=== PATIENT | female | born 1955 | race Caucasian/White ===

== ENCOUNTER → 2016-12-07 | Outpatient (CLI) | payer BC ==
[~2016-12-07] MED LIST: ACET-1311 PO; ACET-24 PO; ASPEC81 PO; CALC500C3 PO; CEPH500C PO; CHOL1000 PO; CLB200 PO; CLR10 PO; CYAN500T13 PO; DILT120C9 PO; DILT120T8 PO; DILT240C48 PO; DIPH25CA5 PO; DPRSCR15 TOP; KETOROLAC 0.4% OPB; LEVO150T9 PO; LEVO175T3 PO; LISI10TA PO; MELO15TA4 PO; ONDA4TAB10 SL; ONDA8TAB6 PO; OXYC1TAB3 PO; PEDICHW34 PO; RXC5 PO; SULF800T23 PO; [UNRECOGNIZED DRUG - CODE] OPB
--- NOTE | 2016-12-07 13:16 | MAMMOGRAPHY REPORT ---
BILATERAL DIGITAL SCREENING MAMMOGRAM WITH CAD: 12/07/2016 CLINICAL HISTORY: Routine screening. Patient has no complaints. TECHNIQUE: Bilateral CC and MLO views were obtained. Current study was also evaluated with a Comput er Aided Detection (CAD) system. COMPARISON: Comparison is made to exams dated: 12/04/2015 mammogram, 12/02/2014 mammogram, 11/14/2013 mammogram, 11/07/2012 mammogram, 11/02/2011 mammogram, and 10/30/2010 mammogram - [facility]. BREAST COMPOSITION: There are scattered areas of fibroglandular density in both breasts. FINDINGS: The parenchymal pattern is unchanged. No developing mass, architectural distortion or clu ster of suspicious microcalcifications is seen in either breast. IMPRESSION: ACR BI-RADS CATEGORY 2: BENIGN There is no mammographic evidence of malignancy. A 1 year screening mammogram is recommended. The p atient will receive written notification of the results. Approximately 10% of breast cancers are not detected with mammography. A negative mammographic repor t should not delay biopsy if a clinically suggestive mass is present. Renetta Yeung M.D. ay/:12/07/2016 07:38:36 Site Inspector: Ina FONG(R)(M), [facility] letter sent: Normal 1/2 BI-RADS Code: ACR BI-RADS Category 2: Benign
== END | disposition home or self-care (01) ==
LOC: C.MAMM 07:19
PROVIDERS: ATTEND Internal Medicine
DX: Z12.31 Encounter for screening mammogram for malignant neoplasm of breast (principal)

== ENCOUNTER 2017-02-03 12:14 | Emergency (ER) | payer BC, OTHER ==
[~2017-02-03] VITALS: Ht 162.6 cm; Wt 106.5 kg
[~2017-02-03 12:14] MED LIST changes: -ACET-1311 PO; -ACET-24 PO; -ASPEC81 PO; -CALC500C3 PO; -CEPH500C PO; -CHOL1000 PO; -CLB200 PO; -CYAN500T13 PO; -DILT120C9 PO; -DILT120T8 PO; -DIPH25CA5 PO; -DPRSCR15 TOP; -KETOROLAC 0.4% OPB; -LEVO150T9 PO; -LEVO175T3 PO; -ONDA4TAB10 SL; -ONDA8TAB6 PO; -OXYC1TAB3 PO; -RXC5 PO; -SULF800T23 PO
[2017-02-03 12:24] VITALS: TEMP 37.2; Ht 162.6 cm; Wt 106.5 kg
[2017-02-03] MEDS ORDERED: ONDANSETRON INJ 2 MG/ML 2 ML VIAL IV STA (12:52)
[2017-02-03] MEDS ORDERED: SODIUM CHLORIDE 0.9% 1000ML 1,000 ML IV STA (12:52)
[2017-02-03] MEDS ORDERED: MoRPHine SULFATE 4 MG/ML 1 ML CARP IV STA (12:52)
--- NOTE | 2017-02-03 13:46 | DIAGNOSTIC IMAGING REPORT ---
LEFT ELBOW MIN 3 VIEWS ROUTINE CLINICAL HISTORY: Left elbow pain. Evaluate for joint effusion. COMPARISON: None FINDINGS: Alignment of the left elbow is anatomic. There is no evidence for joint effusion. No fracture or suspicious lesion is present. There may be minimal chondrocalcinosis. Soft tissue swelling overlying the olecranon and proximal left forearm is noted. IMPRESSION: 1. No fracture or evidence of left elbow joint effusion. 2. Posterior left elbow soft tissue swelling. Electronically signed by: Wilman De Souza M.D. 02/03/2017 1:44 PM Dictated Date/Time: 02/03/2017 1:43 PM
[2017-02-03 13:49] LABS: BASO % 0.2 %; BASO ABS # 0.04 K/uL (0-0.2); COMPLETE YES; EOS % 0.5 %; IG% 0.3 %; LYMPH % 6.6 %; LYMPH ABS # 1.11 K/uL (1.2-3.4); MEAN CELL VOLUME 90.4 fL (80-100); MEAN CORPUSCULAR HEMOGLOBIN 29.5 pg (25-34); MEAN CORPUSCULAR HGB CONC 32.7 g/dl (32-36); MONO % 12.1 %; NEUT % 80.3 %; PLATELET COUNT 328 K/uL (130-400); RED BLOOD COUNT 4.98 M/uL (4.2-5.4); WHITE BLOOD COUNT 16.83 K/uL (4.8-10.8)
[2017-02-03] MEDS ORDERED: DPRSCR15 TOP (14:01)
[2017-02-03] MEDS ORDERED: CALC500C3 PO (14:01)
[2017-02-03] MEDS ORDERED: BND25 PO (14:01)
[2017-02-03] MEDS ORDERED: LEVO175T3 PO (14:01)
[2017-02-03 14:03] LABS: PROTHROMBIN TIME (PATIENT) 10.2 SECONDS (9.0-12.0)
[2017-02-03 14:07] LABS: BUN/CREATININE RATIO 16.7 (10-20); CALCIUM 8.1 mg/dl (8.5-10.1); CREATININE 0.9 mg/dl (0.60-1.20)
[2017-02-03 14:09] LABS: ALB/GLOB RATIO 0.8 (0.9-2)
[2017-02-03] MEDS ORDERED: ACETAMINOPHEN 325 MG TAB PO STA (14:41)
[2017-02-03] MEDS ORDERED: SULFAMETHOXAZOLE/TRIMETHOPRIM DS 800/160MG TAB PO STA (14:41)
[2017-02-03] MEDS ORDERED: CEFAZOLIN SOD 1000MG/55 ML D5W IV STA (14:41)
[2017-02-03] MEDS ORDERED: CEPH500C PO (15:10)
[2017-02-03] MEDS ORDERED: OXYC1TAB3 PO (15:10)
[2017-02-03] MEDS ORDERED: SULF800T23 PO (15:10)
[2017-02-03 15:54] VITALS: BP 139/75; PULSE 106; O2SAT 93
--- NOTE | 2017-02-03 16:20 | EMERGENCY ROOM VISIT NOTE ---
History Report prepared by Nancy: Ena Ybarra Under the Supervision of: Dr. Stuart Paris M.D. First contact with patient: 12:43 Chief Complaint: ELBOW PAIN/INJURY Stated Complaint: HOT PAINFUL ELBOW,NAUSEA, SHOOTING PAIN History of Present Illness The patient is a 61 year old female who presents to the Emergency Room with complaints of left elbow pain beginning last night. The patient reports that she thought it was a bug bite so she took Benadryl, but it did not relieve her symptoms. She reports that her elbow did not itch but that it was red. Touching and straightening her elbow exacerbates the pain. She states that she has had nausea but denies having fevers or vomiting. The patient reports that she has dermatitis and hypertension. 2 weeks ago she had a heat rash and was placed on prednisone .The patient reports that she uses a computer at work but has been doing this for 30 years. She denies any injury. States pain is worse when she touches the elbow but not when she moves it except when it is in full extension. Source of History: patient Onset: last night Position: elbow (left) Quality: other (did not itch, but was red) Modifying Factors (Worsening): other (touching and fully straightening her elbow ) Associated Symptoms: + nausea, No fevers, No vomiting Review of Systems See HPI for pertinent positives & negatives. A total of 10 systems reviewed and were otherwise negative. Past Medical & Surgical Medical Problems: (1) Papillary thyroid carcinoma Surgical Problems: (1) Post-operative state Family History Diabetes mellitus Heart disease Hypertension Kidney stones Social History Smoking Status: Never Smoker Alcohol Use: none Drug Use: none Marital Status: Housing Status: lives with significant other Occupation Status: retired Current/Historical Medications Scheduled Betamethasone Dip (Betamethasone Dipropionat), 1 APPLN TOP BID Calcium Carbonate (Tums), 1 TAB PO TID Cephalexin Monohydrate (Keflex), 500 MG PO TID Diltiazem Hcl Coated Beads (Cartia Xt), 1 CAP PO QAM Levothyroxine Sodium (Levothyroxine Sodium), 1 TAB PO DAILY Lisinopril (Prinivil), 10 MG PO QAM Loratadine (Claritin), 10 MG PO QAM Meloxicam (Meloxicam), 15 MG PO DAILY Pediatric Multiple Vitamin W/ (Gummi Bear Multivitamin/M), 1 TAB PO QAM Sulfa/Trimethoprim (Bactrim Ds 800MG/160MG), 1 TAB PO BID Scheduled PRN Diphenhydramine Hcl (Benadryl), 25 MG PO Q4H PRN for ALLERGIC REACTION Oxycodone Ir (Roxicodone Ir), 5 MG PO Q4H PRN for Pain Allergies Coded Allergies: Clavulanic Acid (Verified Adverse Reaction, Mild, DYSURIA, 02/03/17) FROM AUGMENTIN Physical Exam Vital Signs Date Time Temp Pulse Resp B/P (MAP) Pulse Ox O2 Delivery O2 Flow Rate FiO2 02/03/17 15:54 106 18 139/75 93 02/03/17 15:06 105 18 142/72 97 Room Air 02/03/17 12:24 37.2 125 17 132/82 98 Room Air Physical Exam Constitutional: Vital signs reviewed. Eyes: Pupils are equal round reactive to light. Conjunctiva are noninjected. ENT: Pharynx is clear without erythema or exudate. Mucous membranes are moist. Neck supple without meningeal signs. Respiratory: Clear to auscultation bilaterally. Breath sounds are equal bilaterally. Cardiovascular: Tachycardic. Regular rhythm. No rubs or gallops. GI: Soft, nondistended and nontender. Bowel sounds are present. Musculoskeletal: Diffuse posterior left elbow erythema with increased warmth. Full ROM without significant pain. Integumentary: No cyanosis. Rash under right breast. Neurological: The patient is awake and alert. No focal deficits. Psychiatric: Normal affect. Medical Decision & Procedures ER Provider Diagnostic Interpretation: X-ray results as stated below per interpretation by me and the radiologist: LEFT ELBOW MIN 3 VIEWS ROUTINE CLINICAL HISTORY: Left elbow pain. Evaluate for joint effusion. COMPARISON: None FINDINGS: Alignment of the left elbow is anatomic. There is no evidence for joint effusion. No fracture or suspicious lesion is present. There may be minimal chondrocalcinosis. Soft tissue swelling overlying the olecranon and proximal left forearm is noted. IMPRESSION: 1. No fracture or evidence of left elbow joint effusion. 2. Posterior left elbow soft tissue swelling. Electronically signed by: Wilman De Souza M.D. 02/03/2017 1:44 PM Dictated Date/Time: 02/03/2017 1:43 PM Laboratory Results 02/03/17 13:20 Red Blood Count 4.98, Mean Corpuscular Volume 90.4, Mean Corpuscular Hemoglobin 29.5, Mean Corpuscular Hemoglobin Concent 32.7, Mean Platelet Volume 10.0, Neutrophils (%) (Auto) 80.3, Lymphocytes (%) (Auto) 6.6, Monocytes (%) (Auto) 12.1, Eosinophils (%) (Auto) 0.5, Basophils (%) (Auto) 0.2, Neutrophils # (Auto ) 13.51, Lymphocytes # (Auto) 1.11, Monocytes # (Auto) 2.03, Eosinophils # (Auto ) 0.09, Basophils # (Auto) 0.04 02/03/17 13:20 Test 02/03/17 13:20 02/03/17 13:33 White Blood Count 16.83 K/uL (4.8-10.8) Red Blood Count 4.98 M/uL (4.2-5.4) Hemoglobin 14.7 g/dL (12.0-16.0) Hematocrit 45.0 % (37-47) Mean Corpuscular Volume 90.4 fL (80-100) Mean Corpuscular Hemoglobin 29.5 pg (25-34) Mean Corpuscular Hemoglobin Concent 32.7 g/dl (32-36) Platelet Count 328 K/uL (130-400) Mean Platelet Volume 10.0 fL (7.4-10.4) Neutrophils (%) (Auto) 80.3 % Lymphocytes (%) (Auto) 6.6 % Monocytes (%) (Auto) 12.1 % Eosinophils (%) (Auto) 0.5 % Basophils (%) (Auto) 0.2 % Neutrophils # (Auto) 13.51 K/uL (1.4-6.5) Lymphocytes # (Auto) 1.11 K/uL (1.2-3.4) Monocytes # (Auto) 2.03 K/uL (0.11-0.59) Eosinophils # (Auto) 0.09 K/uL (0-0.5) Basophils # (Auto) 0.04 K/uL (0-0.2) RDW Standard Deviation 50.3 fL (36.4-46.3) RDW Coefficient of Variation 15.2 % (11.5-14.5) Immature Granulocyte % (Auto) 0.3 % Immature Granulocyte # (Auto) 0.05 K/uL (0.00-0.02) Prothrombin Time 10.2 SECONDS (9.0-12.0) Prothromb Time International Ratio 1.0 (0.9-1.1) Activated Partial Thromboplast Time 25.7 SECONDS (21.0-31.0) Partial Thromboplastin Ratio 1.0 Anion Gap 9.0 mmol/L (3-11) Est Creatinine Clear Calc Drug Dose 76.2 ml/min Estimated GFR () 78.9 Estimated GFR (Non- 68.0 BUN/Creatinine Ratio 16.7 (10-20) Calcium Level 8.1 mg/dl (8.5-10.1) Total Bilirubin 0.8 mg/dl (0.2-1) Aspartate Amino Transf (AST/SGOT) 18 U/L (15-37) Alanine Aminotransferase (ALT/SGPT) 36 U/L (12-78) Alkaline Phosphatase 69 U/L (45-117) Total Protein 7.7 gm/dl (6.4-8.2) Albumin 3.5 gm/dl (3.4-5.0) Globulin 4.2 gm/dl (2.5-4.0) Albumin/Globulin Ratio 0.8 (0.9-2) Bedside Lactic Acid Venous 1.08 mmol/L (0.90-1.70) Laboratory results as reviewed by me. Medications Administered Medications (Trade) Dose Ordered Sig/Ed Route Start Time Stop Time Status Last Admin Dose Admin Sodium Chloride 1,000 ml @ 999 mls/hr Q1H1M STAT IV 02/03/17 12:52 02/03/17 13:52 DC 02/03/17 13:56 999 MLS/HR Morphine Sulfate (MoRPHine SULFATE INJ) 4 mg NOW STAT IV 02/03/17 12:52 02/03/17 12:55 DC 02/03/17 13:55 4 MG Ondansetron HCl (Zofran Inj) 4 mg NOW STAT IV 02/03/17 12:52 02/03/17 12:55 DC 02/03/17 13:56 4 MG Cefazolin Sodium (Ancef 1000mg/55 ml D5W) 1,000 mg NOW STAT IV 02/03/17 14:41 02/03/17 14:43 DC 02/03/17 15:03 1,000 MG Trimethoprim/ Sulfamethoxazole (Septra Ds 800/ 160MG Tab) 1 tab NOW STAT PO 02/03/17 14:41 02/03/17 14:43 DC 02/03/17 15:02 1 TAB Acetaminophen (Tylenol Tab) 650 mg NOW STAT PO 02/03/17 14:41 02/03/17 14:43 DC 02/03/17 15:03 650 MG ED Course 1247: The patient was evaluated in room B8. A complete history and physical exam was performed. 1252: Ordered Zofran Inj 4 mg UV, Morphine Sulfate 4 mg IV, Sodium Chloride 1, 000 ml @ 999 mls/hr IV. 1440: She states that she is feeling better and her heart rate is 106. I discussed her test results with her. 1441: Ordered Tylenol Tab 650 mg PO, Trimethoprim/Sulfamethoxazole 1 tab PO, Cefazolin Sodium 1,000 mg IV. 1450: Upon reevaluation, the patient appeared to have improvement of her symptoms. I discussed dawsonight's findings with her. She verbalized agreement of the treatment plan. She was discharged home. Medical Decision This is a 61-year-old female presents with left elbow pain. Differential diagnosis includes cellulitis, septic arthritis, MRSA, bursitis, septic bursitis. I did perform a limited focused review of portions of the patient's old chart on the electronic medical record. The patient has had no recent pertinent visits to this hospital. Blood Pressure Screening: Patient was found to have an elevated blood pressure and was referred to their primary doctor for recheck and further treatment. Medication Reconciliation: I attest that I have personally reviewed the patient' s current medication list. I did evaluate the patient as noted above. The patient is presenting with a cellulitis to her left elbow. She does not have any signs of septic arthritis on examination. She is tachycardic but she is in pain. IV access was established. I did treat her with IV morphine and Zofran. She was also given normal saline IV. She is also treated with Tylenol. I did order and personally review the patient's x-rays as described above. There is no evidence of effusion. I did order and review the patient's blood work as noted in the electronic medical record. She does have an elevated white blood cell count. I did reassess the patient. She is feeling better. Her heart rate has come down. I did discuss the test results with the patient. I did treat her with Ancef IV. She is also given Bactrim to cover MRSA. She was advised follow up with her doctor within 24 hours for recheck. She was given a prescription for oxycodone, Keflex and Bactrim. She was given return instructions as outlined below. [place] Drug Monitoring Program Search Results: patient reviewed within database, no issues identified Impression Primary Impression: Cellulitis of left elbow Scribe Attestation The scribe's documentation has been prepared under my direct and personally reviewed by me in its entirety. I confirm that the note above accurately reflects all work, treatment, procedures, and medical decision making performed by me. Departure Information Dispostion Home / Self-Care Prescriptions Oxycodone Ir (Roxicodone Ir) 5 Mg Tab 5 MG PO Q4H Y for Pain, #20 TAB Prov: Stuart Paris M.D. 02/03/17 Cephalexin Monohydrate (Keflex) 500 Mg Cap 500 MG PO TID for 10 Days, #30 CAP Prov: Stuart Paris M.D. 02/03/17 Sulfa/Trimethoprim (Bactrim Ds 800MG/160MG) Tab 1 TAB PO BID, #19 TAB Prov: Stuart Paris M.D. 02/03/17 Referrals Latasha ROBLES M.D. (PCP) Forms HOME CARE DOCUMENTATION FORM, IMPORTANT VISIT INFORMATION Patient Instructions Cellulitis [place], My [facility] Additional Instructions You have been examined and treated today on an emergency basis only. This is not a substitute for, or an effort to provide, complete comprehensive medical care. It is impossible to recognize and treat all injuries or illnesses in a single emergency department visit. It is therefore important that you follow up closely with your physician in 24 hours. Call as soon as possible for an appointment. Return immediately for worsening symptoms or if you develop fever , vomiting, significant pain with movement of your elbow or any other concerning symptoms.
[2017-02-04] MEDS ORDERED: ACET-1311 PO (19:09)
== END 2017-02-03 15:55 | disposition home or self-care (01) ==
LOC: C.EDB 12:16
DX: L03.114 Cellulitis of left upper limb (principal); C73 Malignant neoplasm of thyroid gland; Z79.899 Other long term (current) drug therapy; Z88.8 Allergy status to other drugs, medicaments and biological substances; Z83.3 Family history of diabetes mellitus; Z82.49 Family history of ischemic heart disease and other diseases of the circulatory system; Z84.1 Family history of disorders of kidney and ureter

== ENCOUNTER 2017-02-04 18:11 | Emergency (ER) | payer BC, OTHER ==
[~2017-02-04] VITALS: Ht 162.6 cm; Wt 104.5 kg
[~2017-02-04 18:11] MED LIST changes: +BND25 PO; +CALC500C3 PO; +CEPH500C PO; +DPRSCR15 TOP; +LEVO175T3 PO; +OXYC1TAB3 PO; +SULF800T23 PO; -[UNRECOGNIZED DRUG - CODE] OPB
[2017-02-04 18:14] VITALS: Ht 162.6 cm; Wt 104.5 kg
[2017-02-04] MEDS ORDERED: ACET-1311 PO (19:09)
[2017-02-04] MEDS ORDERED: CEFTRIAXONE SOD INJ 1 GM ADDVIAL IV STA (19:15)
[2017-02-04] MEDS ORDERED: VANCOMYCIN INJ 1,000 MG in SODIUM CHLORIDE 0.9% 250ML 250 ML IV STA (19:15)
[2017-02-04] MEDS ORDERED: KETOROLAC TROMETHAMINE 30 MG/ML VIAL IV STA ×2 (19:15)
[2017-02-04] MEDS ORDERED: SODIUM CHLORIDE 0.9% 1000ML 1,000 ML IV STA (19:15)
--- NOTE | 2017-02-04 19:18 | EMERGENCY ROOM VISIT NOTE ---
History Report prepared by Nancy: Tanisha Patino Under the Supervision of: Dr. Manolo Chance M.D. First contact with patient: 19:09 Chief Complaint: WOUND INFECTION Stated Complaint: CELLULITIS,FEVER,LARGER RED AREA Nursing Triage Summary: patient seen yesterday for cellulitis of left elbow, patient states "its worse today, I've got fever, chills, the pain is worse." History of Present Illness The patient is a 61 year old female who presents to the Emergency Room with complaints of a constant wound infection beginning yesterday. The patient states that she was seen here yesterday and was diagnosed with cellulitis. She reports that she was feeling okay after going home and about 2 hours ago she developed a fever and chills. She notes a history of hypertension and thyroid issues. The patient states that she did not have it drained yesterday and notes that her pain is worsened by straightening the arm. Source of History: patient Onset: yesterday Position: elbow (left) Timing: constant Modifying Factors (Worsening): other (straightening arm) Associated Symptoms: + fevers, + chills Review of Systems See HPI for pertinent positives & negatives. A total of 10 systems reviewed and were otherwise negative. Past Medical & Surgical Medical Problems: (1) Papillary thyroid carcinoma Surgical Problems: (1) Post-operative state Family History Diabetes mellitus Heart disease Hypertension Kidney stones Social History Smoking Status: Never Smoker Alcohol Use: none Drug Use: none Marital Status: Housing Status: lives with significant other Occupation Status: retired Current/Historical Medications Scheduled Calcium Carbonate (Tums), 1 TAB PO DAILY Cephalexin Monohydrate (Keflex), 500 MG PO TID Diltiazem Hcl (Cardizem), 120 MG PO DAILY Levothyroxine Sodium (Levothyroxine Sodium), 175 MCG PO QAM Lisinopril (Prinivil), 10 MG PO QAM Loratadine (Claritin), 10 MG PO QAM Meloxicam (Meloxicam), 15 MG PO DAILY Pediatric Multiple Vitamin W/ (Gummi Bear Multivitamin/M), 1 TAB PO QAM Sulfa/Trimethoprim (Bactrim Ds 800MG/160MG), 1 TAB PO BID Scheduled PRN Acetaminophen (Tylenol), 650 MG PO Q6 PRN for Pain or Fever Betamethasone Dip (Betamethasone Dipropionat), 1 APPLN TOP BID PRN for Diphenhydramine Hcl (Benadryl), 25 MG PO Q4H PRN for ALLERGIC REACTION Oxycodone Ir (Roxicodone Ir), 5 MG PO Q4H PRN for Pain Allergies Coded Allergies: Clavulanic Acid (Verified Adverse Reaction, Mild, DYSURIA, 02/04/17) FROM AUGMENTIN Physical Exam Vital Signs Date Time Temp Pulse Resp B/P (MAP) Pulse Ox O2 Delivery O2 Flow Rate FiO2 02/04/17 22:54 37.1 80 16 126/78 97 Room Air 02/04/17 21:00 84 16 134/82 97 02/04/17 18:14 37.1 124 20 166/80 94 Room Air Physical Exam GENERAL: Patient is a healthy-appearing well-nourished [] HEAD: Normocephalic atraumatic EYES: Ocular movements intact pupils equal and react to light OROPHARYNX mucous membranes are moist no exudates present no erythema or edema present NECK: Supple no nuchal rigidity CHEST: Good equal expansion LUNGS: Clear and equal to auscultation CARDIAC: Normal S1 and S2 ABDOMEN: Soft nontender no guarding BACK: No CVA tenderness EXTREMITIES: No pain upon palpation normal muscle strength in all groups no clubbing cyanosis,red area of cellulitis extending out of the purple zone running down the arm, she has good range of movement of the left elbow and no pain NEURO: Patient is following commands and answering questions appropriately. Alert and oriented x3 Cranial Nerves 2-12 grossly intact Medical Decision & Procedures ER Provider Diagnostic Interpretation: Radiology results as stated below per my review and radiologist interpretation: VENOUS DOPPLER UPR EXT UNI FINDINGS: The internal jugular vein is patent. There is normal flow within the subclavian vein. There is normal flow and compressibility within the left axillary, basilic, brachial, radial, ulnar, and visualized cephalic veins. IMPRESSION: No DVT within the upper extremity. The above report was generated using voice recognition software. It may contain grammatical, syntax or spelling errors. Electronically signed by: Sheldon Atkins M.D. 02/04/2017 9:00 PM Dictated Date/Time: 02/04/2017 8:59 PM Laboratory Results 02/04/17 19:30 Red Blood Count 4.52, Mean Corpuscular Volume 90.0, Mean Corpuscular Hemoglobin 29.2, Mean Corpuscular Hemoglobin Concent 32.4, Mean Platelet Volume 9.9, Neutrophils (%) (Auto) 75.9, Lymphocytes (%) (Auto) 10.3, Monocytes (%) (Auto) 12.2, Eosinophils (%) (Auto) 1.1, Basophils (%) (Auto) 0.2, Neutrophils # (Auto ) 10.81, Lymphocytes # (Auto) 1.47, Monocytes # (Auto) 1.74, Eosinophils # (Auto ) 0.15, Basophils # (Auto) 0.03 02/04/17 19:30 Test 02/04/17 19:30 White Blood Count 14.24 K/uL (4.8-10.8) Red Blood Count 4.52 M/uL (4.2-5.4) Hemoglobin 13.2 g/dL (12.0-16.0) Hematocrit 40.7 % (37-47) Mean Corpuscular Volume 90.0 fL (80-100) Mean Corpuscular Hemoglobin 29.2 pg (25-34) Mean Corpuscular Hemoglobin Concent 32.4 g/dl (32-36) Platelet Count 300 K/uL (130-400) Mean Platelet Volume 9.9 fL (7.4-10.4) Neutrophils (%) (Auto) 75.9 % Lymphocytes (%) (Auto) 10.3 % Monocytes (%) (Auto) 12.2 % Eosinophils (%) (Auto) 1.1 % Basophils (%) (Auto) 0.2 % Neutrophils # (Auto) 10.81 K/uL (1.4-6.5) Lymphocytes # (Auto) 1.47 K/uL (1.2-3.4) Monocytes # (Auto) 1.74 K/uL (0.11-0.59) Eosinophils # (Auto) 0.15 K/uL (0-0.5) Basophils # (Auto) 0.03 K/uL (0-0.2) RDW Standard Deviation 50.7 fL (36.4-46.3) RDW Coefficient of Variation 15.5 % (11.5-14.5) Immature Granulocyte % (Auto) 0.3 % Immature Granulocyte # (Auto) 0.04 K/uL (0.00-0.02) Anion Gap 6.0 mmol/L (3-11) Est Creatinine Clear Calc Drug Dose 69.2 ml/min Estimated GFR () 71.2 Estimated GFR (Non- 61.4 BUN/Creatinine Ratio 16.5 (10-20) Calcium Level 8.3 mg/dl (8.5-10.1) Labs reviewed by ED physician. Medications Administered Medications (Trade) Dose Ordered Sig/Ed Route Start Time Stop Time Status Last Admin Dose Admin Ceftriaxone Sodium (Rocephin Inj) 1 gm NOW STAT IV 02/04/17 19:15 02/04/17 19:18 DC 02/04/17 19:46 1 GM Vancomycin HCl 1000 mg/Sodium Chloride 270 ml @ 125 mls/hr NOW STAT IV 02/04/17 19:15 02/04/17 21:24 DC 02/04/17 21:01 125 MLS/HR Sodium Chloride 1,000 ml @ 999 mls/hr Q1H1M STAT IV 02/04/17 19:15 02/04/17 20:15 DC 02/04/17 19:46 999 MLS/HR Ketorolac Tromethamine (Toradol Inj) 30 mg NOW STAT IV 02/04/17 19:15 02/04/17 19:18 DC 02/04/17 19:46 30 MG ED Course 1908: Past medical records reviewed. The patient was evaluated in room C1. A complete history and physical examination was performed. 1914: Toradol Inj 30mg IV, Sodium Chloride 1000 ml @ 999 mls/hr IV, Toradol Inj 30mg IV, Vancomycin HCl 100mg/Sodium Chloride 270ml @ 125mls/hr IV, Rocephin Inj 1gm IV. 2019: Vancomycin HCl 1gm IV. 2224: Upon reexamination the patient is doing well. I discussed results and treatment plan with the patient. She verbalizes agreement and understanding. The patient is ready for discharge. Medical Decision Differential diagnosis: Etiologies such as cellulitis, abscess, MRSA infection, DVT, necrotizing fasciitis, dermatitis, drug eruption, as well as others were entertained. Medication Reconciliation: I attest that I have personally reviewed the patient' s current medication list Blood Pressure Screening: Patient was found to have an elevated blood pressure and was referred to their primary care doctor for recheck and further treatment This is a 61-year-old female who presents emergency department complaining of left upper extremity swelling. The swelling I will note appears much worse than the demarcated the area from yesterday for this reason IV was established and another CBC was drawn. The patient's white blood count has fallen to 14. She was started on IV Rocephin and IV vancomycin however her streaking appeared to improve dramatically while she was in the emergency Department. At this point the patient felt well enough to be discharged home. She has no evidence of a blood clot on ultrasound. I stressed the need to continue taking her antibiotics at home. The IV was left in place for the patient to return to the emergency department tomorrow. Patient and were in agreement with the treatment plan. Impression Primary Impression: Cellulitis Scribe Attestation The scribe's documentation has been prepared under my direction and personally reviewed by me in its entirety. I confirm that the note above accurately reflects all work, treatment, procedures, and medical decision making performed by me. Departure Information Dispostion Home / Self-Care Referrals Latasha SOLIS M.D. (PCP) Forms HOME CARE DOCUMENTATION FORM, IMPORTANT VISIT INFORMATION, WORK / SCHOOL INSTRUCTIONS Patient Instructions Cellulitis - [facility], My [facility] Additional Instructions Return in 24 hours for repeat exam You have been examined and treated today on an emergency basis only. This is not a substitute for, or an effort to provide, complete comprehensive medical care. It is impossible to recognize and treat all injuries or illnesses in a single emergency department visit. It is therefore important that you follow up closely with Dr Solis. Call as soon as possible for an appointment. Thank you for your time and consideration. I look forward to speaking with you again soon. Please don't hesitate to call us if you have any questions. Problem Qualifiers Primary Impression: Cellulitis Site of cellulitis: extremity Site of cellulitis of extremity: upper extremity Laterality: left Qualified Codes: L03.114 - Cellulitis of left upper limb
[2017-02-04] MEDS ORDERED: VANCOMYCIN 1GM/270ML NSS ONE (20:20)
[2017-02-04 20:34] LABS: BASO % 0.2 %; BASO ABS # 0.03 K/uL (0-0.2); COMPLETE YES; EOS % 1.1 %; HEMATOCRIT 40.7 % (37-47); IG% 0.3 %; LYMPH % 10.3 %; LYMPH ABS # 1.47 K/uL (1.2-3.4); MEAN CORPUSCULAR HEMOGLOBIN 29.2 pg (25-34); MEAN CORPUSCULAR HGB CONC 32.4 g/dl (32-36); MEAN PLATELET VOLUME 9.9 fL (7.4-10.4); MONO % 12.2 %; NEUT % 75.9 %; PLATELET COUNT 300 K/uL (130-400); RED BLOOD COUNT 4.52 M/uL (4.2-5.4); WHITE BLOOD COUNT 14.24 K/uL (4.8-10.8)
[2017-02-04 20:43] LABS: BUN/CREATININE RATIO 16.5 (10-20); CALCIUM 8.3 mg/dl (8.5-10.1); CREATININE 0.98 mg/dl (0.60-1.20); POTASSIUM 3.6 mmol/L (3.5-5.1)
--- NOTE | 2017-02-04 21:01 | DIAGNOSTIC IMAGING REPORT ---
VENOUS DOPPLER UPR EXT UNI HISTORY: Pain. Edema. Pt c/o LUE swelling COMPARISON STUDY: None. FINDINGS: The internal jugular vein is patent. There is normal flow within the subclavian vein. There is normal flow and compressibility within the left axillary, basilic, brachial, radial, ulnar, and visualized cephalic veins. IMPRESSION: No DVT within the upper extremity. The above report was generated using voice recognition software. It may contain grammatical, syntax or spelling errors. Electronically signed by: Sheldon Atkins M.D. 02/04/2017 9:00 PM Dictated Date/Time: 02/04/2017 8:59 PM
[2017-02-04 22:54] VITALS: BP 126/78; PULSE 80; TEMP 37.1; O2SAT 97
[2017-02-05] MEDS ORDERED: DILT120T8 PO (17:14)
== END 2017-02-04 22:57 | disposition home or self-care (01) ==
LOC: C.EDB 18:11 → C.EDC 22:57
DX: L03.114 Cellulitis of left upper limb (principal); I10 Essential (primary) hypertension; C73 Malignant neoplasm of thyroid gland; Z83.3 Family history of diabetes mellitus; Z82.49 Family history of ischemic heart disease and other diseases of the circulatory system; Z84.1 Family history of disorders of kidney and ureter

== ENCOUNTER 2017-02-05 16:45 | Emergency (ER) | payer BC ==
[~2017-02-05] VITALS: Ht 162.6 cm; Wt 103.9 kg
[~2017-02-05 16:45] MED LIST changes: +ACET-1311 PO
[2017-02-05 16:48] VITALS: BP 117/68; PULSE 98; TEMP 36.8; O2SAT 96; Ht 162.6 cm; Wt 103.9 kg
[2017-02-05] MEDS ORDERED: DILT120T8 PO (17:14)
--- NOTE | 2017-02-05 17:21 | EMERGENCY ROOM VISIT NOTE ---
ED Visit Note First contact with patient: 17:06 CHIEF COMPLAINT: Infection of the elbow HISTORY OF PRESENT ILLNESS: This C1-year-old female patient presents to the emergency department with her complaining of in light of the left elbow. The area his red, warm, and very painful, however she states the pain, redness, swelling is significantly improved since yesterday. The patient was seen here yesterday and for evaluation of the cellulitis. She was treated yesterday with IV antibiotics, and was discharged and advised to keep the IV in place in case she would need antibiotics today. The patient reports significant improvement. The patient denies fever, chills, nausea, or loss of appetite. Movement of the left elbow is moderately decreased because of the pain. REVIEW OF SYSTEMS: A 10-system review of systems was performed with positives and pertinent negatives listed in the history of present illness. All other systems were reviewed and are negative. ALLERGIES: Clavulanic acid MEDICATIONS: Bactrim, Keflex, OxyIR, lisinopril, diltiazem, loratadine, multivitamin, meloxicam, Tums, Benadryl, betamethasone, levothyroxine, Tylenol PMH: Cellulitis, hypertension, seasonal allergies SOCIAL HISTORY: Lives locally with her . She denies drug, alcohol, tobacco use. PHYSICAL EXAM: Vital Signs: Reviewed Nurse's notes, Temperature 36.8C, vital signs stable. GENERAL: 61-year-old female, in no acute distress, is non toxic in appearance, well-developed, well-nourished. SKIN: The left elbow and surrounding area is red, warm, very tender, and swollen. There is no lymphangitic streaking. There is no discharge. There is no fluctuance. There is no induration. There is an outline drawn surrounding the infection, and redness as well within the borders. HEART: Regular rate and rhythm without murmur, gallop, or rub. LUNGS: Clear to auscultation bilaterally without wheezes , rales, or rhonchi. NEURO: Alert and oriented to person, place, and time. Normal sensation to light and sharp touch. Capillary reflex less than 2 seconds. Peripheral pulses 2 + bilaterally. EMERGENCY DEPARTMENT COURSE: I examined the patient. The patient was also examined by Dr. Chance. He states the infection looks significantly better than yesterday. He recommends DC the IV and have the patient follow up outpatient. She is to continue taking Bactrim and Keflex as she was previously prescribed. The patient was discharged home in good condition. DIFFERENTIAL DIAGNOSIS: MRSA, Sepsis, joint infection, cellulitis, and others. DIAGNOSIS: Cellulitis of the left elbow DISCHARGE INSTRUCTIONS: Please continue taking Keflex and Bactrim as they were previously prescribed for you. Please continue managing your pain as previously discussed over the past 2 days. Return to the ED for worsening redness, swelling, warmth, fever, chills, nausea , vomiting, body aches, or other concerning symptoms. Please follow-up very closely with Dr. Robles for further evaluation and management of the infection. Current/Historical Medications Scheduled Calcium Carbonate (Tums), 1 TAB PO DAILY Cephalexin Monohydrate (Keflex), 500 MG PO TID Diltiazem Hcl (Cardizem), 120 MG PO DAILY Levothyroxine Sodium (Levothyroxine Sodium), 175 MCG PO QAM Lisinopril (Prinivil), 10 MG PO QAM Loratadine (Claritin), 10 MG PO QAM Meloxicam (Meloxicam), 15 MG PO DAILY Pediatric Multiple Vitamin W/ (Gummi Bear Multivitamin/M), 1 TAB PO QAM Sulfa/Trimethoprim (Bactrim Ds 800MG/160MG), 1 TAB PO BID Scheduled PRN Acetaminophen (Tylenol), 650 MG PO Q6 PRN for Pain or Fever Betamethasone Dip (Betamethasone Dipropionat), 1 APPLN TOP BID PRN for Diphenhydramine Hcl (Benadryl), 25 MG PO Q4H PRN for ALLERGIC REACTION Oxycodone Ir (Roxicodone Ir), 5 MG PO Q4H PRN for Pain Allergies Coded Allergies: Clavulanic Acid (Verified Adverse Reaction, Mild, DYSURIA, 02/04/17) FROM [facility]UGMENTIN Vital Signs Date Time Temp Pulse Resp B/P (MAP) Pulse Ox O2 Delivery O2 Flow Rate FiO2 02/05/17 16:48 36.8 98 17 117/68 96 Departure Information Impression Primary Impression: Cellulitis of left elbow Dispostion Home / Self-Care Condition GOOD Referrals Latasha ROBLES M.D. (PCP) Patient Instructions My [facility] Additional Instructions Please continue taking Keflex and Bactrim as they were previously prescribed for you. Please continue managing your pain as previously discussed over the past 2 days. Return to the ED for worsening redness, swelling, warmth, fever, chills, nausea , vomiting, body aches, or other concerning symptoms. Please follow-up very closely with Dr. Robles for further evaluation and management of the infection.
== END 2017-02-05 17:20 | disposition home or self-care (01) ==
LOC: C.EDB 16:46 → C.EDD 17:20
DX: L03.114 Cellulitis of left upper limb (principal); I10 Essential (primary) hypertension; Z86.19 Personal history of other infectious and parasitic diseases; Z79.899 Other long term (current) drug therapy; Z88.8 Allergy status to other drugs, medicaments and biological substances

== ENCOUNTER 2017-06-15 05:10 | Inpatient (IN) | payer BC ==
[2017-06-02 10:46] VITALS: BMI 39.0
--- NOTE | 2017-06-02 11:16 | PAT Medication Instructions ---
Service Date Jun 02, 2017. Current Home Medication List Acetaminophen (Tylenol), 650 MG PO Q6 PRN for Pain or Fever Betamethasone Dip (Betamethasone Dipropionat), 1 APPLN TOP BID PRN for Calcium Carbonate (Tums), 2 TAB PO NOON Cholecalciferol (Vitamin D3), 1 TAB PO QPM Cyanocobalamin (Vitamin B12 500MCG), 500 MCG PO 3XWEEK Diltiazem Hcl (Cardizem), 120 MG PO QAM Diphenhydramine Hcl (Benadryl), 25 MG PO Q4H PRN for ALLERGIC REACTION Levothyroxine Sodium (Levothyroxine Sodium), 1 TAB PO QAM Lisinopril (Prinivil), 10 MG PO QAM Loratadine (Claritin), 10 MG PO QAM Meloxicam (Meloxicam), 15 MG PO QAM Pediatric Multiple Vitamin W/ (Gummi Bear Multivitamin/M), 1 TAB PO QPM [Ketrolac0.4%], 1 DROP OPB QAM Medication Instructions For Your Scheduled Surgery - Hold the following medications 1 week prior to surgery per surgeon's instructions: Meloxicam (Meloxicam), 15 MG PO QAM - Hold the following medications 24 hours prior to surgery: Betamethasone Dip (Betamethasone Dipropionat), 1 APPLN TOP BID PRN for - Hold the following medications the morning of surgery: Lisinopril (Prinivil), 10 MG PO QAM Loratadine (Claritin), 10 MG PO QAM Diphenhydramine Hcl (Benadryl), 25 MG PO Q4H PRN for ALLERGIC REACTION [Ketrolac0.4%], 1 DROP OPB QAM Calcium Carbonate (Tums), 2 TAB PO NOON - Take the following medications the morning of surgery with a sip of water OTHERWISE NOTHING TO EAT OR DRINK AFTER MIDNIGHT: Acetaminophen (Tylenol), 650 MG PO Q6 PRN for Pain or Fever (may take if needed up to 4 hours prior to surgery) Levothyroxine Sodium (Levothyroxine Sodium), 1 TAB PO QAM Diltiazem Hcl (Cardizem), 120 MG PO QAM - Take the following medications as scheduled the night before surgery: Acetaminophen (Tylenol), 650 MG PO Q6 PRN for Pain or Fever Diphenhydramine Hcl (Benadryl), 25 MG PO Q4H PRN for ALLERGIC REACTION Pediatric Multiple Vitamin W/ (Gummi Bear Multivitamin/M), 1 TAB PO QPM Cholecalciferol (Vitamin D3), 1 TAB PO QPM Cyanocobalamin (Vitamin B12 500MCG), 500 MCG PO 3XWEEK If you have any questions please call us at [phone] or [phone] or [phone]
--- NOTE | 2017-06-02 12:29 | DIAGNOSTIC IMAGING REPORT ---
CHEST 2 VIEWS ROUTINE HISTORY: 61 years-old Female PAT preoperative exam without acute chest complaints COMPARISON: Chest radiograph 04/13/2016 TECHNIQUE: PA and lateral views of the chest FINDINGS: Cardiac silhouette is within normal limits. Mild prominence of the upper mediastinum is again seen. The trachea however is now midline. Surgical clips project over the left neck, new from prior exam. No pneumothorax, pleural effusion or focal airspace consolidation. No overt pulmonary edema. Degenerative changes are seen about the right shoulder. IMPRESSION: No acute cardiopulmonary process. The above report was generated using voice recognition software. It may contain grammatical, syntax or spelling errors. Electronically signed by: Nithin Sanders M.D. 06/02/2017 12:28 PM Dictated Date/Time: 06/02/2017 12:26 PM
[2017-06-02 12:42] LABS: URINE APPEARANCE CLEAR (CLEAR); URINE BILIRUBIN NEG (NEG); URINE COLOR YELLOW; URINE NITRITE NEG (NEG); URINE PH 7.5 (4.5-7.5); URINE SPECIFIC GRAVITY 1.022 (1.000-1.030); UROBILINOGEN NEG (NEG); ZZUR CULT IF INDIC CLEAN CATCH NO
[2017-06-02 12:44] LABS: MANUAL MICROSCOPIC REQUIRED? NO; REVIEW REQ? NO
[2017-06-02 12:46] LABS: BASO % 0.6 %; BASO ABS # 0.04 K/uL (0-0.2); COMPLETE YES; EOS % 3.1 %; HEMATOCRIT 43.3 % (37-47); IG% 0.1 %; LYMPH % 28.9 %; LYMPH ABS # 2.03 K/uL (1.2-3.4); MEAN CELL VOLUME 92.5 fL (80-100); MEAN CORPUSCULAR HEMOGLOBIN 31.2 pg (25-34); MEAN CORPUSCULAR HGB CONC 33.7 g/dl (32-36); MEAN PLATELET VOLUME 10.3 fL (7.4-10.4); MONO % 13.5 %; NEUT % 53.8 %; PLATELET COUNT 331 K/uL (130-400); RED BLOOD COUNT 4.68 M/uL (4.2-5.4); WHITE BLOOD COUNT 7.03 K/uL (4.8-10.8)
[2017-06-02 12:51] LABS: PROTHROMBIN TIME (PATIENT) 10.4 SECONDS (9.0-12.0)
[2017-06-02 12:58] LABS: BUN/CREATININE RATIO 19.3 (10-20); CALCIUM 7.8 mg/dl (8.5-10.1); CREATININE 0.77 mg/dl (0.60-1.20); POTASSIUM 3.7 mmol/L (3.5-5.1)
[2017-06-02 13:39] LABS: ESTIMATED AVERAGE GLUCOSE 126 mg/dl; HA1C FLAG Normal (Normal)
--- NOTE | 2017-06-14 10:10 | HISTORY & PHYSICAL EXAMINATION ---
DATE OF ADMISSION: 06/15/2017 CHIEF COMPLAINT: Right hip pain. HISTORY OF PRESENT ILLNESS: Ms. Hodges is a 61-year-old female with a 6-month history of right hip pain. The patient rates her pain as 8/10. She has pain with her daily activities. She has limited standing and walking tolerance. Pain is worse with weightbearing. The patient is using a cane to ambulate. She is taking Mobic on a regular basis. She also takes Tylenol as needed. She has failed conservative treatment and is scheduled for right hip replacement. PAST MEDICAL HISTORY: Hypertension. She denies heart disease, diabetes or DVT. PAST SURGICAL HISTORY: Left total hip anterior approach 2015, thyroidectomy, shoulder arthroscopy and left tibial plateau ORIF. SOCIAL HISTORY: The patient denies alcohol or tobacco use. She lives in a 2-story home. 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 FAMILY HISTORY: Positive for DVT in her dad. MEDICATIONS: Lisinopril 1 tablet daily, vitamin B12, Claritin 10 mg daily, Cartia XT 120 mg daily, ketorolac 0.4% eyedrops 4 times daily, levothyroxine 150 mcg. ALLERGIES: None. REVIEW OF SYSTEMS: See HPI. Ten other systems reviewed, all negative. PHYSICAL EXAMINATION: VITAL SIGNS: Height 5 foot 4 inches, weight 228 pounds, BMI is 39. GENERAL: This is a well-developed, well-nourished female who is alert and oriented x3. Mood and affect are appropriate. HEENT: Normocephalic, atraumatic. Mucous membranes are moist and intact. NECK: Supple without lymphadenopathy. HEART: Regular rate and rhythm without murmurs, rubs or gallops. LUNGS: Clear to auscultation without wheezes or rhonchi. ABDOMEN: Soft and nontender. Bowel sounds are equal and active. EXTREMITIES: No ecchymosis, redness or warmth. Thigh and calf are soft and nontender. Log roll of the hip reproduces pain in the groin. Range of motion is decreased. She is neurovascularly intact with +5/5 strength. X-RAY EXAMINATION: AP and lateral views show joint space narrowing with large osteophyte formation of the right hip. IMPRESSION: Degenerative joint disease, right hip. PLAN: The patient will be admitted for a right total hip arthroplasty with Dr. Hanson. We will plan on aspirin for DVT prophylaxis. The patient is going to have [facility] for home physical therapy. She has cardiac clearance by Dr. Fiore.
[2017-06-15] VITALS (9 sets, daily range): BP systolic 104–149; BP diastolic 64–89; PULSE 95–109; TEMP 36.5–37; O2SAT 93–97; Ht 162.6 cm; Wt 103.8 kg
[~2017-06-15] VITALS: Ht 162.6 cm; Wt 103.8 kg
[~2017-06-15 05:10] MED LIST changes: -BND25 PO; -CEPH500C PO; +CHOL1000 PO; +CYAN500T13 PO; +DILT120T8 PO; -DILT240C48 PO; +DIPH25CA5 PO; +KETOROLAC 0.4% OPB; +LEVO150T9 PO; -LEVO175T3 PO; -OXYC1TAB3 PO; -SULF800T23 PO
[2017-06-15] MEDS ORDERED: METOCLOPRAMIDE HCL 10 MG TAB PO SCH (06:00)
[2017-06-15] MEDS ORDERED: CEFAZOLIN 2000MG IV PUSH 10 ML IV SCH (06:00)
[2017-06-15] MEDS ORDERED: CeleBREX 200 MG CAP PO SCH (06:00)
[2017-06-15] MEDS ORDERED: ACETAMINOPHEN 500 MG TAB PO SCH (06:00)
[2017-06-15] MEDS ORDERED: GABAPENTIN 300 MG CAP PO SCH (06:00)
[2017-06-15] MEDS ORDERED: FAMOTIDINE 20 MG TAB PO SCH (06:00)
[2017-06-15] MEDS ORDERED: ROPIVACAINE 5MG/ML 30 ML 150 MG, BUPIVACAINE 0.5% MPF INJ 30 ML, EpINEphrine HCL INJ 0.... INFIL SCH ×8 (06:00)
[2017-06-15] MEDS ORDERED: LACTATED RINGER'S 1000ML IV SCH (06:00)
[2017-06-15] MEDS ORDERED: LACTATED RINGER'S 1000ML 500 ML IV SCH (06:00)
[2017-06-15] MEDS ORDERED: DEXAMETHASONE 4 MG TAB PO SCH (06:00)
[2017-06-15] MEDS ORDERED: LACTATED RINGER'S 1000ML 1,000 ML IV SCH (06:00)
[2017-06-15] MEDS ORDERED: BUPIVACAINE 0.5 % 5 MG/1 ML PF 10ML VIAL ONE (06:27)
[2017-06-15] MEDS: TRANEXAMIC ACID INJ 1,000 MG in SYRINGE 0 ML IV SCH ×2 (06:30→06:40)
[2017-06-15] MEDS ORDERED: LIDOCAINE HCL 2% 2 ML VIAL (20MG/ML) ONE (06:40)
[2017-06-15] MEDS ORDERED: PROPOFOL IV EMULSION 10 MG/ML 20 ML VIAL IV ONE ×3 (06:40→08:40)
[2017-06-15] MEDS ORDERED: MIDAZOLAM HCL 1 MG/ML 2ML VIAL ONE ×2 (06:41→07:49)
[2017-06-15] MEDS ORDERED: FENTANYL CITRATE INJ 50 MCG/1 ML 2 ML VIAL ONE (06:46)
[2017-06-15] MEDS ORDERED: POVIDONE-IODINE OP SOLN 30 ML BTL ONE (06:56)
[2017-06-15] MEDS ORDERED: ORTHO JOINT ANESTHETIC ONE (06:56)
[2017-06-15] MEDS ORDERED: BACITRACIN 50000 UNIT VIAL ONE (06:56)
[2017-06-15] MEDS ORDERED: SCOPOLAMINE 1.5 MG TDSY TD ONE (07:02)
[2017-06-15] MEDS ORDERED: EpHEDrine SULFATE INJ 50 MG/ML AMP IV PRN (07:15)
[2017-06-15] MEDS ORDERED: ONDANSETRON INJ 2 MG/ML 2 ML VIAL IV PRN ×2 (07:15→09:15)
[2017-06-15] MEDS ORDERED: ATROPINE SULFATE 0.1 MG/ML 5ML SYR IV PRN (07:15)
[2017-06-15] MEDS ORDERED: FENTANYL CITRATE INJ 50 MCG/1 ML 2 ML VIAL IV PRN (07:15)
--- NOTE | 2017-06-15 07:20 | History & Physical Bridge Note ---
H&P Re-Evaluation Bridge Note: I have examined the patient, reviewed the History & Physical and in the interval since the performance of the History & Physical I have noted the following changes of clinical significance: No changes noted
[2017-06-15] MEDS ORDERED: DEXAMETHASONE SOD INJ 4 MG/ML VIAL ONE (08:01)
[2017-06-15] MEDS ORDERED: ONDANSETRON INJ 2 MG/ML 2 ML VIAL ONE (08:02)
[2017-06-15] MEDS ORDERED: EpHEDrine SULFATE INJ 50 MG/ML AMP ONE (08:16)
--- NOTE | 2017-06-15 08:30 | [facility] Post Operative Brief Note ---
Immediate Operative Summary Operative Date Jun 15, 2017. Pre-Operative Diagnosis Degenerative joint disease, right hip Post-Operative Diagnosis Degenerative joint disease, right hip Procedure(s) Performed Right Total Hip Arthroplasty Surgeon Dr. Hanson [employer] Architect Surgeon(s) Camilla Cleveland PA-C Estimated Blood Loss 150 ml Findings severe OA Specimens a. right femoral head Complication(s) None Disposition Recovery Room / PACU
--- NOTE | 2017-06-15 08:45 | OPERATIVE REPORT ---
DATE OF OPERATION: 06/15/2017 PREOPERATIVE DIAGNOSIS: Osteoarthritis, right hip. POSTOPERATIVE DIAGNOSIS: Osteoarthritis, right hip. PROCEDURE: Right connective total hip arthroplasty. SURGEON: Dr. Hanson. CHARGE POSTER: LAST Guerrier ANESTHESIA: spinal COMPLICATIONS: None. OPERATION AND FINDINGS: PROCEDURE: Following induction of adequate spinal anesthesia, the patient was placed in left lateral decubitus position and right Ayana-Langenbeck incision was made. Subcutaneous tissue was sharply dissected. Electrocautery used for hemostasis. The fascia was incised throughout the length of the wound and a denise scissor placed beneath the short external rotators. The pyriformis was tagged with #1 Vicryl. The short external rotators were divided from the posterior aspect of the femur using electrocautery. These were swept posteriorly. A T-capsulotomy incision was made and the hip was dislocated using a combination of flexion, adduction, and internal rotation. Exposure of the femoral neck with old-style Hohmann and a blunt Hohmann was carried out and a femoral rasp was utilized as a guide for making the appropriate level femoral neck cut. This bone fragment was removed and reserved on the back table. Next, attention was turned to the acetabulum where bone hook was used to retract the femur while the offset retractors were placed anterior and posteriorly. A double-angled Hohmann was placed in superior and anterior position exposing the acetabulum nicely. Acetabular labrum as well as posterior capsule elements were removed using a long knife and a long pickup. Fovea centralis was cleared of all soft tissue. Sequential reamings were carried up to a 50 and decision was made to proceed with impaction of a 50 trabecular metal cup. This was impacted and held using a single 35 mm bone screw. The acetabular liner was placed with 15 of elevated posterior wall in the superior and posterior position. Next, attention was turned to the femoral portion of the case where a Bovie and pickup was used to further clear short external rotators from their insertion on the femur. Box osteotome was used to gain access to the femoral canal and the T-handled rasp and a rattail rasp were used to further open and lateral the canal. Sequentially raspings were carried up to a #1, reduced offset, which gave good fit and fill of the proximal femur. A trial reduction was carried out and a 132 degree femoral neck component was chosen as the size to be used. A -5 x 36 mm ceramic femoral head was impacted into position, +0 head was utilized. The trial reduction was stable in all degrees of rotation with no [id number] impingement. The hip was dislocated. The trial components were removed and the final femoral stem, neck, and femoral head combination were assembled on the back table and impacted into position. Hip was relocated. Range of motion checked once again successful and the wound was irrigated. The pyriformis repaired to the greater trochanter using #1 Vicryl [id number] suture. A Hemovac drain was placed and the fascia was closed using #1 Vicryl, subcutaneous tissue was closed using 0 Dexon, and skin was closed with heather. Sterile dressing of Adaptic, 4 x 4's, ABDs, and foam tape was applied. The patient tolerated the procedure well. Due to the complex nature of the procedure, the entire surgery was performed with the operational assistance of LAST Guerrier. The junior sales assistant, under direct supervision, was involved in the actual performance of all aspects of the surgical procedure including hemostasis, tissue retraction and incision, instrument management, patient positioning, and wound closure. DISPOSITION: Recovery room, stable. I attest to the content of the Intraoperative Record and any orders documented therein. Any exceptions are noted below. DERRICK
[2017-06-15] MEDS ORDERED: TRAMADOL HCL 50 MG TAB PO PRN (09:15)
[2017-06-15] MEDS ORDERED: MoRPHine SULFATE 2 MG/ML CARP IV PRN (09:15)
[2017-06-15] MEDS ORDERED: DiphenhydrAMINE HCL 50 MG/ML VIAL IV PRN (09:15)
[2017-06-15] MEDS ORDERED: MAGNESIUM HYDROXIDE SUSP 30 ML UDC PO PRN (09:15)
[2017-06-15] MEDS ORDERED: ALUMINUM/MAGNESIUM/SIMETH (MAALOX MAX) 30 ML UDC PO PRN (09:15)
[2017-06-15] MEDS ORDERED: SOD PHOSPHATE/SOD BIPHOSPHATE ENEMA 132 ML BTL PR PRN (09:15)
[2017-06-15] MEDS ORDERED: ZOLPIDEM TARTRATE 5 MG TAB PO PRN (09:15)
[2017-06-15] MEDS ORDERED: OXYCODONE HCL IR 5 MG TAB (IMMEDIATE RELEASE) PO PRN (09:15)
[2017-06-15] MEDS ORDERED: BISACODYL 10 MG SUPP PR PRN (09:15)
--- NOTE | 2017-06-15 09:39 | DIAGNOSTIC IMAGING REPORT ---
AP PELVIS AND RIGHT HIP 2 VIEWS CLINICAL HISTORY: Degenerative arthritis. Postoperative study. COMPARISON STUDY: CT scan dated 06/21/2016 FINDINGS: The patient's total left hip arthroplasty remains unchanged. There are now postsurgical changes of a total right hip arthroplasty. There is no dislocation. There are no acute fractures. There are overlying skin heather and surgical drains. IMPRESSION: Postsurgical changes of a total right hip arthroplasty. Electronically signed by: Enrique Ramsay M.D. 06/15/2017 9:38 AM Dictated Date/Time: 06/15/2017 9:35 AM
--- NOTE | 2017-06-15 10:00 | Anesthesiology Progress Note ---
Anesthesia Post Op Note Date & Time Jun 15, 2017 at 10:00 Vital Signs Pain Intensity: 0 Vital Signs Past 12 Hours Date Time Temp Pulse Resp B/P (MAP) Pulse Ox O2 Delivery O2 Flow Rate FiO2 06/15/17 09:43 96 15 96 06/15/17 09:43 96 15 06/15/17 09:41 117/77 06/15/17 09:41 36.5 95 20 114/70 (85) 96 Room Air 10 Oxymask 06/15/17 09:38 99 21 96 06/15/17 09:38 98 21 06/15/17 09:37 99 18 06/15/17 09:37 98 18 96 06/15/17 09:36 121/78 06/15/17 09:32 99 18 96 06/15/17 09:32 100 18 06/15/17 09:31 110/70 06/15/17 09:27 97 22 96 06/15/17 09:27 97 22 06/15/17 09:26 126/75 06/15/17 09:25 96 14 06/15/17 09:25 95 14 95 06/15/17 09:21 91/66 06/15/17 09:20 100 14 06/15/17 09:20 100 14 98 06/15/17 09:16 107/75 06/15/17 09:15 99 17 99 06/15/17 09:15 99 17 06/15/17 09:11 113/68 06/15/17 09:10 102 20 06/15/17 09:10 101 20 98 06/15/17 09:06 108/70 06/15/17 09:05 36.7 107 20 108/70 (85) 97 Oxymask 10 06/15/17 09:05 106 16 98 06/15/17 09:05 108 16 06/15/17 06:02 36.7 100 20 149/89 95 Room Air Notes Mental Status: alert / awake / arousable, participated in evaluation Pt Amnestic to Procedure: Yes Nausea / Vomiting: adequately controlled Pain: adequately controlled Airway Patency, RR, SpO2: stable & adequate BP & HR: stable & adequate Hydration State: stable & adequate Neuraxial Anesthesia: was administered, sensory block is resolving Anesthetic Complications: no major complications apparent
[2017-06-15] MEDS ORDERED: DILT120C9 PO (10:49)
[2017-06-15] MEDS: DILTIAZEM HCL 120 MG CAPCR PO SCH (11:00)
[2017-06-15] MEDS: KETOROLAC TROMETHAMINE 30 MG/ML VIAL IV. SCH ×2 (13:09→19:09)
[2017-06-15] MEDS: ACETAMINOPHEN 500 MG TAB PO SCH ×2 (13:09→21:47)
[2017-06-15] MEDS: CEFAZOLIN IV 2,000 MG in SYRINGE 0 ML IV SCH (16:00)
[2017-06-15] MEDS: D5W AND 1/2NSS + 20MEQ KCL 1,000 ML IV SCH (16:26)
[2017-06-15] MEDS: LISINOPRIL 10 MG TAB PO SCH (16:28)
[2017-06-15] MEDS: ASPIRIN 81 MG ECTAB PO SCH (20:58)
[2017-06-15] MEDS: CALCIUM CARBONATE 500 MG CHEWABLE PO SCH (20:59)
[2017-06-15] MEDS ORDERED: SENNA 8.6 MG TAB PO SCH (21:00)
[2017-06-15] MEDS ORDERED: CHOLECALCIFEROL 1000 INTER.UNIT TAB PO SCH (21:00)
[2017-06-15] MEDS ORDERED: NURSING VERBAL MED ORDER ONE (21:15)
[2017-06-16] MEDS: CEFAZOLIN IV 2,000 MG in SYRINGE 0 ML IV SCH (00:28)
[2017-06-16] MEDS: KETOROLAC TROMETHAMINE 30 MG/ML VIAL IV. SCH ×2 (00:29→06:16)
[2017-06-16] MEDS: D5W AND 1/2NSS + 20MEQ KCL 1,000 ML IV SCH (00:29)
[2017-06-16 02:45] VITALS: BP 108/65; PULSE 72; TEMP 36.7; O2SAT 94
[2017-06-16 05:53] LABS: BASO ABS # 0.01 K/uL (0-0.2); COMPLETE YES; HEMATOCRIT 38.3 % (37-47); IG% 0.4 %; LYMPH % 6.8 %; LYMPH ABS # 1.41 K/uL (1.2-3.4); MEAN CELL VOLUME 92.7 fL (80-100); MEAN CORPUSCULAR HEMOGLOBIN 30.5 pg (25-34); MEAN CORPUSCULAR HGB CONC 32.9 g/dl (32-36); MONO % 6.7 %; NEUT % 86.1 %; PLATELET COUNT 317 K/uL (130-400); RED BLOOD COUNT 4.13 M/uL (4.2-5.4); WHITE BLOOD COUNT 20.62 K/uL (4.8-10.8)
[2017-06-16] MEDS ORDERED: LEVOTHYROXINE 150 MCG TAB PO SCH (06:00)
[2017-06-16 06:16] LABS: CALCIUM 7.9 mg/dl (8.5-10.1); CREATININE 1.21 mg/dl (0.60-1.20)
[2017-06-16] MEDS: ACETAMINOPHEN 500 MG TAB PO SCH (06:16)
--- NOTE | 2017-06-16 07:16 | Orthopedic Progress Note ---
Orthopedic Progress Note Date of Service Jun 16, 2017. Subjective Post OP Day: 1 Reports: feeling well, pain controlled w PO medications, Denies: complaints, chest pain, SOB, nausea / vomiting, light headedness, calf pain Objective calves soft nontender, N/V intact, capillary refill less than 2 sec., dressing C /D/I, A&O x3, toes mobile Date Time Temp Pulse Resp B/P (MAP) Pulse Ox O2 Delivery O2 Flow Rate FiO2 06/16/17 02:45 36.7 72 16 108/65 (79) 94 Room Air 06/15/17 23:25 36.6 95 16 104/64 (77) 93 Room Air 06/15/17 22:40 Room Air 06/15/17 19:30 Room Air 06/15/17 18:55 37.0 105 16 106/70 (82) 93 Room Air 06/15/17 15:40 36.8 105 16 112/74 (87) 95 Nasal Cannula 2.0 06/15/17 13:03 109 123/76 (92) 06/15/17 12:17 36.5 102 18 110/75 (87) 97 Nasal Cannula 2.0 06/15/17 11:12 102 16 109/75 (86) 95 2.0 06/15/17 10:40 36.5 99 16 107/74 (85) 97 2.0 06/15/17 10:10 Nasal Cannula 2.0 06/15/17 10:10 Nasal Cannula 06/15/17 10:10 36.5 103 18 114/76 (89) 94 Nasal Cannula 2.0 06/15/17 09:56 131/73 06/15/17 09:54 100 14 06/15/17 09:54 100 14 96 06/15/17 09:51 114/70 06/15/17 09:49 97 17 96 06/15/17 09:49 97 17 06/15/17 09:46 129/73 06/15/17 09:44 96 14 06/15/17 09:44 96 14 95 06/15/17 09:43 96 15 96 06/15/17 09:43 96 15 06/15/17 09:41 117/77 06/15/17 09:41 36.5 95 20 114/70 (85) 96 Room Air 10 Oxymask 06/15/17 09:38 99 21 96 06/15/17 09:38 98 21 06/15/17 09:37 99 18 06/15/17 09:37 98 18 96 06/15/17 09:36 121/78 06/15/17 09:32 99 18 96 06/15/17 09:32 100 18 06/15/17 09:31 110/70 06/15/17 09:27 97 22 96 06/15/17 09:27 97 22 06/15/17 09:26 126/75 06/15/17 09:25 96 14 06/15/17 09:25 95 14 95 06/15/17 09:21 91/66 06/15/17 09:20 100 14 06/15/17 09:20 100 14 98 06/15/17 09:16 107/75 06/15/17 09:15 99 17 99 06/15/17 09:15 99 17 06/15/17 09:11 113/68 06/15/17 09:10 102 20 06/15/17 09:10 101 20 98 06/15/17 09:06 108/70 06/15/17 09:05 36.7 107 20 108/70 (85) 97 Oxymask 10 06/15/17 09:05 106 16 98 06/15/17 09:05 108 16 Laboratory Results 24 Hours: Test 06/16/17 05:05 White Blood Count 20.62 K/uL Red Blood Count 4.13 M/uL Hemoglobin 12.6 g/dL Hematocrit 38.3 % Mean Corpuscular Volume 92.7 fL Mean Corpuscular Hemoglobin 30.5 pg Mean Corpuscular Hemoglobin Concent 32.9 g/dl Platelet Count 317 K/uL Mean Platelet Volume 10.0 fL Neutrophils (%) (Auto) 86.1 % Lymphocytes (%) (Auto) 6.8 % Monocytes (%) (Auto) 6.7 % Eosinophils (%) (Auto) 0.0 % Basophils (%) (Auto) 0.0 % Neutrophils # (Auto) 17.74 K/uL Lymphocytes # (Auto) 1.41 K/uL Monocytes # (Auto) 1.38 K/uL Eosinophils # (Auto) 0.00 K/uL Basophils # (Auto) 0.01 K/uL Assessment & Plan Assessment: POD #1 s/p Right YESI -PT/OT -dvt proph with GENIE/SCD/ASA -prevena x 7 days -would like d/c home with HHPT, likely after PT today had her left YESI done last year Discharge Planning Discharge Planning: home with home health DVT Prophylaxis: TEDs, SCDs, ASA Therapy: Physical Therapy
--- NOTE | 2017-06-16 07:17 | Discharge Instructions ---
Discharge Instructions Date of Service Jun 16, 2017. Admission Reason for Admission: Right Hip Osteoarthritis Discharge Discharge Diagnosis / Problem: right total hip replacement Discharge Goals Goal(s): Decrease discomfort, Improve function, Increase independence Activity Recommendations Activity Limitations: as noted below Weightbearing Status: Right weightbearing (as tolerated) . Instructions / Follow-Up Instructions / Follow-Up ACTIVITY RECOMMENDATIONS: SELF CARE INSTRUCTIONS AFTER TOTAL HIP REPLACEMENT Until the incision and soft tissues around your hip have healed, there is a possibility that the hip prosthesis could dislocate. A. Observe the following precautions to prevent dislocation: 1. Don't bend your hip greater than 90 degrees. 2. Avoid crossing your legs or ankles while standing or lying. 3. Sit with your feet placed 6 inches apart. 4. When sitting, keep your knees below your hips. Sit on a firm surface, avoid deep, soft chairs and couches. Use an elevated toilet seat in the bathroom. 5. Don't bend over at the waist. Use a long handled shoehorn and a sock aid to help you put on your shoes and socks. A freelance photographer can help you leaf size picker objects that are too high or too low to reach. 6. Keep car riding to a minimum for at least one month after surgery. B. Your balance may be shaky for a while. Use crutches or a walker until directed by your doctor. C. Use hand rails when walking on stairs. D. Wear low heeled shoes with non-slip soles. E. Be sure that your floors are free of things that could trip you - throw rugs , electrical cords, small objects. Avoid wet and waxed floors, especially with crutches and canes. F. Try to walk several times a day with rest periods between. G. Continue with all the exercises taught to you in the hospital. Again, make walking a part of your daily routine. SPECIAL CARE INSTRUCTIONS: VERY IMPORTANT TO READ AND REVIEW A. You may still be at risk for phlebitis and blood clots. 1. Wear surgical stockings (GENIE hose) for 2 weeks after surgery to improve circulation and reduce swelling. 2. Take Aspirin 81mg twice daily for 4 weeks or as directed by your doctor. This is your blood thinner. 3. High risk patients may be prescribed a stronger blood thinner if necessary. 4. If you are on Coumadin normally, your family doctor/top carrier should monitor your blood work. Expect a phone call the day of or the day after bloodwork is drawn to adjust your dosage. B. You must take antibiotics before having dental work, bladder, bowel and other surgery. Your doctor will provide you with a permanent card to carry describing precautions. C. Call [facility] if you have a fever, redness or swelling around the incision, cloudy drainage from incision, or sudden increase in pain in your hip, not relieved by your regular pain medication. D. Please call the office at if you have any concerns or questions about your operation or recovery. * YOU MAY SHOWER, NO TUB BATHS UNTIL CLEARED BY YOUR DOCTOR. * WEAR GENIE HOSE 20 HOURS PER DAY FOR 2 WEEKS. * YOU SHOULD USE A WALKER OR CRUTCHES FOR 2-4 WEEKS. THIS WILL HELP PREVENT STRAIN ON YOUR HIP MUSCLE AND ALLOW IT TO HEAL PROPERLY. YOU MAY WEAN TO A CANE TOLERATED. * MOST PATIENTS WILL HAVE HOME NURSING FOR THERAPY. IF YOU DECIDE TO DO OUTPATIENT PHYSICAL THERAPY, PLEASE SCHEDULE THIS 3 TIMES PER WEEK. * Prevena- This is a large suction dressing covering your incision. This will help pull any excess drainage from the wound and allow your incision to heal properly. You may shower with this if you can keep the unit outside of the shower. If any bleeding or leakage is noted please call your doctor's office. This will remain on your incision for 7 days and then should be removed. This can be done yourself or by the home nursing staff if applicable. The entire unit is disposable once removed. Once removed, keep incision clean and dry. If redness or drainage is noted, please call your surgeon. FOLLOW UP VISIT: If appointment is not already scheduled: Please call [facility] to make a follow-up appointment for 2 weeks after your surgery at . Current Hospital Diet Patient's current hospital diet: Regular Diet Discharge Diet Recommended Diet: Regular Diet Procedures Procedures Performed: Right Total Hip Arthroplasty Pending Studies Studies pending at discharge: no Laboratory Results Hemoglobin A1c Test 06/02/17 11:25 Range/Units Estimated Average Glucose 126 mg/dl Hemoglobin A1c 6.0 H 4.5-5.6 % Medical Emergencies . Who to Call and When: Medical Emergencies: If at any time you feel your situation is an emergency, please call 911 immediately. . Non-Emergent Contact Non-Emergency issues call your: Primary Care Provider, Surgeon . "Provider Documentation" section prepared by Sheldon Bey. . VTE Core Measure Inpt VTE Proph given/why not?: Other Anticoagulation (ASA 81mg po bid x 1month) , T.E.D. Stockings, SCD's [place] Drug Monitoring Program Search Results: patient reviewed within database, no issues identified
[2017-06-16] MEDS ORDERED: ASPEC81 PO (07:20)
[2017-06-16] MEDS ORDERED: ONDA8TAB6 PO (07:20)
[2017-06-16] MEDS ORDERED: RXC5 PO (07:20)
[2017-06-16] MEDS ORDERED: CLB200 PO (07:20)
[2017-06-16] MEDS ORDERED: ACET-24 PO (07:20)
[2017-06-16 07:40] VITALS: BP 99/67; PULSE 76; TEMP 36.9; O2SAT 94
[2017-06-16 08:21] VITALS: BP 99/67; PULSE 76; TEMP 36.9; O2SAT 94
[2017-06-16 08:45] VITALS: BP 115/68; PULSE 106
[2017-06-16] MEDS: DILTIAZEM HCL 120 MG CAPCR PO SCH (08:46)
[2017-06-16] MEDS: ASPIRIN 81 MG ECTAB PO SCH (08:48)
[2017-06-16] MEDS: CALCIUM CARBONATE 500 MG CHEWABLE PO SCH (08:48)
[2017-06-16] MEDS: LISINOPRIL 10 MG TAB PO SCH (08:48)
[2017-06-16] MEDS ORDERED: PANTOprazole SOD 40 MG TAB PO SCH (09:00)
[2017-06-16] MEDS ORDERED: MULTIVITAMIN TAB PO SCH (09:00)
[2017-06-16] MEDS ORDERED: LORATADINE 10 MG TAB PO SCH (09:00)
[2017-06-16] MEDS ORDERED: CeleBREX 200 MG CAP PO SCH (21:00)
== END 2017-06-16 11:12 | disposition home or self-care (01) | DRG 470 ==
LOC: C.ACU 05:10 → C.3E 05:40 → ENRESERV 09:46
PROC: 0SR903A Replacement of Right Hip Joint with Ceramic Synthetic Substitute, Uncemented, Open Approach (ICD-10-PCS; principal; 2017-06-15 07:30)
DX: M16.11 Unilateral primary osteoarthritis, right hip (principal); I10 Essential (primary) hypertension; Z79.899 Other long term (current) drug therapy

== ENCOUNTER → 2017-12-09 | Outpatient (CLI) | payer OTHER ==
[~2017-12-09] MED LIST changes: -ACET-1311 PO; +ACET-24 PO; +ASPI-320 PO; +CLB200 PO; +DILT120C9 PO; -DILT120T8 PO; -KETOROLAC 0.4% OPB; -MELO15TA4 PO; +ONDA-170 PO; +RXC5 PO
--- NOTE | 2017-12-09 15:13 | MAMMOGRAPHY REPORT ---
BILATERAL DIGITAL SCREENING MAMMOGRAM TOMOSYNTHESIS WITH CAD: 12/09/2017 CLINICAL HISTORY: Routine screening. Patient has no complaints. TECHNIQUE: Breast tomosynthesis in addition to standard 2D mammography was performed. Current study was also evaluated with a Computer Aided Detection (CAD) system. COMPARISON: Comparison is made to exams dated: 12/07/2016 mammogram, 12/04/2015 mammogram, 12/02/2014 m ammogram, 11/14/2013 mammogram, 11/07/2012 mammogram, and 11/02/2011 mammogram - [facility] enter. BREAST COMPOSITION: There are scattered areas of fibroglandular density in both breasts. FINDINGS: No suspicious masses, calcifications, or areas of architectural distortion are noted in ei ther breast. There has been no significant interval change compared to prior exams. IMPRESSION: ACR BI-RADS CATEGORY 1: NEGATIVE There is no mammographic evidence of malignancy. A 1 year screening mammogram is recommended. The pa tient will receive written notification of the results. Approximately 10% of breast cancers are not detected with mammography. A negative mammographic report should not delay biopsy if a clinically suggestive mass is present. Sunita Hollis M.D. /:12/09/2017 07:38:47 Raised Printer: Dary FONG(Bbas)(M), [facility] letter sent: Normal 1/2 BI-RADS Code: ACR BI-RADS Category 1: Negative
== END | disposition home or self-care (01) ==
LOC: C.MAMM 07:18
PROVIDERS: ATTEND Internal Medicine
DX: Z12.31 Encounter for screening mammogram for malignant neoplasm of breast (principal)

== ENCOUNTER 2019-03-07 10:52 | Inpatient (IN) ==
--- NOTE | 2019-02-06 11:29 | PAT Medication Instructions ---
Medication Instructions Date of Service February 06, 2019 Home Medications acetaminophen 1,000 mg PO Q6H NEEDED betamethasone dipropionate 1 applic TOPICAL DAILY NEEDED calcium carbonate 1,000 mg PO TID cholecalciferol (vitamin D3) [Vitamin D3] 1,000 unit PO QPM cyanocobalamin (vitamin B-12) [Vitamin B-12] 500 mcg PO 3XWK diltiazem HCl 180 mg PO QAM diphenhydramine HCl 25 mg PO Q8H NEEDED levothyroxine 150 mcg PO QAM lisinopril 10 mg PO QAM loratadine 10 mg PO QAM metformin 1,000 mg PO QDD multivitamin 2 tab PO QDD STOP taking 24 hours before surgery betamethasone dipropionate 1 applic TOPICAL DAILY NEEDED DO NOT take the morning of surgery calcium carbonate 1,000 mg PO TID cyanocobalamin (vitamin B-12) [Vitamin B-12] 500 mcg PO 3XWK diphenhydramine HCl 25 mg PO Q8H NEEDED lisinopril 10 mg PO QAM loratadine 10 mg PO QAM Take morning of surgery With a small sip of water, OTHERWISE NOTHING TO EAT OR DRINK AFTER MIDNIGHT: acetaminophen 1,000 mg PO Q6H NEEDED (if needed; STOP four hours before surgery) diltiazem HCl 180 mg PO QAM levothyroxine 150 mcg PO QAM Take evening before surgery acetaminophen 1,000 mg PO Q6H NEEDED (if needed) calcium carbonate 1,000 mg PO TID cholecalciferol (vitamin D3) [Vitamin D3] 1,000 unit PO QPM diphenhydramine HCl 25 mg PO Q8H NEEDED (if needed) metformin 1,000 mg PO QDD multivitamin 2 tab PO QDD Other Notes If you have any questions please call us at [phone] or [phone] or [phone] or [phone]
--- NOTE | 2019-02-06 11:38 | Anesthesiology Consultation ---
Date of Service February 06, 2019 Assessment & Plan (1) Encounter for pre-operative examination: - Possible difficult intubation due to scar tissue from UPPP. Chart Review Chart Review: Acceptable Risk for Surgery and Patient seen in Pre Admission Testing Consults Requested medical (Dr. Solis (02/21)) Patient was seen by PCP on 02/21 for preoperative evaluation. Per note from this visit, "Feel acceptable risk for OR." Teaching & Discussion Pre-Anesthesia Teaching/Discussion Notes: Instructed NPO after midnight before surgery, except medications with 15 cc of water. Medication instructions provided according to the PAT guidelines. History Surgery Operation Date: 03/07/19 13:20 Proposed Procedures p Left Total Shoulder Arthroplasty - Shabbir Bob MD Height/Weight Height: 5 ft 4 in Weight: 111.9 kg Allergies Allergy/AdvReac Type Severity Reaction Status Date / Time clavulanic acid AdvReac Mild DYSURIA Verified 01/30/19 11:48 Medications Home Medications Medication Instructions Recorded Confirmed Last Taken acetaminophen 1,000 mg PO Q6H PRN 01/30/19 01/30/19 Unknown betamethasone dipropionate 1 applic TOPICAL DAILY PRN 01/30/19 01/30/19 Unknown calcium carbonate 1,000 mg PO TID 01/30/19 01/30/19 Unknown cholecalciferol (vitamin D3) 1,000 unit PO QPM 01/30/19 01/30/19 Unknown [Vitamin D3] cyanocobalamin (vitamin B-12) 500 mcg PO 3XWK 01/30/19 01/30/19 Unknown [Vitamin B-12] diltiazem HCl 180 mg PO QAM 01/30/19 01/30/19 Unknown diphenhydramine HCl 25 mg PO Q8H PRN 01/30/19 01/30/19 Unknown levothyroxine 150 mcg PO QAM 01/30/19 01/30/19 Unknown lisinopril 10 mg PO QAM 01/30/19 01/30/19 Unknown loratadine 10 mg PO QAM 01/30/19 01/30/19 Unknown metformin 1,000 mg PO QDD 01/30/19 01/30/19 Unknown multivitamin 2 tab PO QDD 01/30/19 01/30/19 Unknown Past Medical History Medical History Hx of sleep apnea (Resolved) HAD TONSILS REMOVED - NO LONGER HAS ISSUES Hypertension Pre-diabetes Tachycardia ON MEDS Exercise / Class Metabolic Activity II 4-5 Yardwork/Stairs/Walk up hill (Does curling, 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 Denies CP or SOB with activity. ) Past Family History Family History Grandmother (Maternal) Family history of diabetes mellitus Uncle Family history of diabetes mellitus Past Surgical History Surgical History History of open reduction and internal fixation (ORIF) procedure LEFT TIBIAL PLATEAU Hx of bilateral hip replacements Hx of ovarian cystectomy Hx of shoulder surgery LEFT SCOPED Hx of tonsillectomy Hx of total thyroidectomy Nausea and vomiting after administration of anesthetic agent S/P UPPP (uvulopalatopharyngoplasty) 12/20/12 - ETT #7.5, placed under DVL x 1 Past Anesthesia History No Hx of Anesthesia Complications and No Family Hx of Anesthesia Complications History of PONV No Hx of Motion Sickness and History of PONV Social History Smoking Status: Never smoker Do You Dip or Chew Tobacco: No Hx Alcohol Use: Yes alcohol intake frequency: holidays/special occasions only Hx Substance Use: No Review of Systems Patient denies chest pain, shortness of breath, dyspnea on exertion, reflux, cough, wheezing, palpitations. +Joint Pain (Shoulder, all over) Physical Exam Vital Signs BP: 136/83 P: 97 R: 16 T: 98.2 SPO2: 96% on RA Constitutional + morbidly obese ENMT Thyromental Distance: < 3.5 Finger Breadths (3) Mallampati Class: III Narrow airway/scar tissue from UPPP Neck normal visual inspection and trachea midline; neck extension not limited Respiratory normal respiratory effort Auscultation: lungs clear to auscultation bilaterally Cardiovascular Rate/Rhythm: regular rate and regular rhythm Heart Sounds: no murmur Vessels: no carotid bruit Neurologic moves all extremities Psychiatric Orientation: alert and oriented x 3 Testing Laboratory Results 02/06/19 12:30 02/06/19 12:30 PT 10.4 Seconds (9.0-12.0) 02/06/19 12:30 INR 1.0 (0.9-1.1) 02/06/19 12:30 APTT 26.4 Seconds (21.0-31.0) 02/06/19 12:30 Hemoglobin A1c 6.1 % (4.5-5.6) H 02/06/19 12:30 Urine Color Yellow 02/06/19 12:30 Urine Appearance Clear (Clear) 02/06/19 12:30 Urine pH 8.0 (4.5-7.5) H 02/06/19 12:30 Ur Specific [place] 1.025 (1.000-1.030) 02/06/19 12:30 Urine Protein Negative (Negative) 02/06/19 12:30 Urine Glucose (UA) Negative (Negative) 02/06/19 12:30 Urine Ketones Negative (Negative) 02/06/19 12:30 Urine Nitrite Negative (Negative) 02/06/19 12:30 Ur Leukocyte Esterase Negative (Negative) 02/06/19 12:30 Blood Type A Positive 02/06/19 12:30 Antibody Screen NEGATIVE 02/06/19 12:30 Electrocardiogram Date: 02/06/19 Findings: + NSR @ (92) Inferior infarct (cited on or before 08/19/14) When compared with ECG of 04/13/16, Fusion complexes are no longer present Chest X-Ray Date: 02/06/19 Findings: + NAD FINDINGS: PA and lateral chest radiographs are compared to study dated 06/02/2017. The heart is top normal for projection. A hiatal hernia is noted. The lungs and pleural spaces are clear. There is no pneumothorax. The skeletal structures are osteopenic. The bony thorax appears intact. Surgical clips project over the left neck. IMPRESSION: No active disease in the chest. Echocardiogram Date: 04/07/16 EF: 61% LV Function: normal Other Findings: + diastolic dysfunction (Grade I) Valvular Disease: + no significant valvular disease
--- NOTE | 2019-02-06 13:09 | XRay Report ---
TWO VIEW CHEST CLINICAL HISTORY: Preoperative examination. FINDINGS: PA and lateral chest radiographs are compared to study dated 06/02/2017. The heart is top no rmal for projection. A hiatal hernia is noted. The lungs and pleural spaces are clear. There is no pn eumothorax. The skeletal structures are osteopenic. The bony thorax appears intact. Surgical clips pr oject over the left neck. IMPRESSION: No active disease in the chest. Electronically signed by: Vega You M.D. 02/06/2019 1:08 PM
[2019-02-06 13:47] LABS: Basophils # (auto) 0.04 K/uL (0-0.2); Basophils % (auto) 0.5 %; Eosinophils # (auto) 0.17 K/uL (0-0.5); Eosinophils % (auto) 2.2 %; Hematocrit (blood only) 43.3 % (37-47); Immature Granulocytes # (auto) 0.02 K/uL (0.00-0.02); Immature Granulocytes % (auto) 0.3 %; Lymphocytes # (auto) 1.98 K/uL (1.2-3.4); Lymphocytes % (auto) 25.3 %; Mean Corpuscular Hgb Conc 32.3 g/dL (32-36); Mean Corpuscular Volume 91.7 fL (80-100); Mean Platelet Volume 10.4 fL (7.4-10.4); Monocytes # (auto) 0.86 K/uL (0.11-0.59); Neutrophils # (auto) 4.77 K/uL (1.4-6.5); Neutrophils % (auto) 60.7 %; Platelet Count 365 K/uL (130-400); RDW Coefficient of Variation 14.1 % (11.5-14.5); RDW Standard Deviation 47.5 fL (36.4-46.3); Red Blood Count 4.72 M/uL (4.2-5.4); White Blood Count 7.84 K/uL (4.8-10.8)
[2019-02-06 13:49] LABS: Appearance Urine Clear (Clear); Bilirubin Urine Negative (Negative); Blood Urine Negative (Negative); Color Urine Yellow; Glucose Urine UA Negative (Negative); Ketones Urine Negative (Negative); Leukocyte Esterase Urine Negative (Negative); Nitrite Urine Negative (Negative); Protein Urine Negative (Negative); Specific Gravity Urine 1.025 (1.000-1.030); Urobilinogen Urine Negative (Negative)
[2019-02-06 13:59] LABS: Partial Thromboplastin Time 26.4 Seconds (21.0-31.0); Prothrombin Time 10.4 Seconds (9.0-12.0)
[2019-02-06 14:28] LABS: Estimated Average Glucose 128 mg/dl; Hemoglobin A1C 6.1 % (4.5-5.6)
[2019-02-06 15:06] LABS: Albumin Level 3.7 gm/dl (3.4-5.0); BUN Creatinine Ratio 16.7 (10-20); Calcium 8.3 mg/dl (8.5-10.1); Est GFR (Non-African American) 69.9; Potassium 3.9 mmol/L (3.5-5.1)
--- NOTE | 2019-03-06 21:51 | History and Physical Report ---
DATE OF ADMISSION: 03/07/2019 CHIEF COMPLAINT: Chronic left shoulder pain. HISTORY OF PRESENT ILLNESS: This is a 63-year-old female patient of Dr. Coe complaining of chronic left shoulder pain, longstanding now, progressively getting worse. The patient has failed conservative treatment including arthroscopic surgery, intra-articular injections, and physical therapy. The patient has been diagnosed with end-stage osteoarthritis per clinical and radiographic exams. The patient wished to proceed with a left total shoulder arthroplasty. PAST MEDICAL HISTORY: Hypertension, hypercholesterolemia, tachycardia, sleep apnea, prediabetic, hypothyroidism, osteoarthritis, obesity, kidney stones. SOCIAL HISTORY: Nonsmoker, nondrinker. PAST SURGICAL HISTORY: Bilateral hip surgery, left shoulder surgery, thyroid surgery, tonsil surgery, and bilateral knee surgeries. REVIEW OF SYSTEMS: The patient complains of chronic left shoulder pain and decreased function. Otherwise, denies any shortness of breath, chest pain, nausea, vomiting, or any other joint complaints. FAMILY HISTORY: Noncontributory. MEDICATIONS: 1. Tums as needed. 2. Metformin 500 mg 1 tablet twice daily. 3. Lisinopril 10 mg daily. 4. Meloxicam 15 mg daily. 5. Levothyroxine 150 mcg daily. 6. Tylenol Extra Strength 500 mg as needed. 7. Diltiazem 180 mg daily. 8. Xiidra 5% eyedrops 2 times every day in both eyes. 9. Vitamin D3 1000 units daily. 10. Claritin 10 mg daily. 11. Flonase 50 mcg per actuation 2 sprays each nostril daily. 12. Vitamin B12 100 mcg daily. 13. Benadryl 25 mg every 4-6 hours as needed. 14. Multivitamin daily. ALLERGIES: No known drug allergies. PHYSICAL EXAMINATION: GENERAL: Well-developed, well-nourished, 63-year-old female, of Dr. Coe, in no acute distress. She is alert and oriented x3 and pleasant. HEENT: Normocephalic, atraumatic. Extraocular motions are intact. Pupils are equal and reactive to light. HEART: Regular rhythm and she is tachycardic at 104. LUNGS: Clear. ABDOMEN: Soft and nontender. Bowel sounds are present. EXTREMITIES: Left shoulder active range of motion of 0-120, passively 140. She has crepitation with range of motion and pain. She has 5/5 strength with pain and crepitation. NEUROLOGIC: Neurovascularly, she is intact in her left upper extremity. DIAGNOSES: Left shoulder end-stage osteoarthritis, hypertension, hypercholesterolemia, tachycardia, sleep apnea, prediabetic, hypothyroidism, osteoarthritis, obesity. PLAN: The patient was advised of her diagnosis. Indications, risks, benefits, postop course have all been reviewed. The patient wished to proceed with a left total shoulder arthroplasty. Necessary consent forms, preoperative testing and clearances will be obtained.
[~2019-03-07 10:52] MED LIST changes: -ACET-24 PO; +ACETAMINOPHEN 500 MG TAB PO SCH; -ASPI-320 PO; -CALC500C3 PO; +CEFAZOLIN 2000MG 2,000 MG/15 ML SYR IV SCH; -CHOL1000 PO; -CLB200 PO; -CLR10 PO; -CYAN500T13 PO; +CeleBREX 200 MG CAP PO SCH; +DEXAMETHASONE SOD INJ 4 MG/ML VIAL ONE; -DILT120C9 PO; -DIPH25CA5 PO; -DPRSCR15 TOP; +EPINEPHrine INJ 1 MG/ML AMP ONE; +FAMOTIDINE 20 MG TAB PO SCH; +GABAPENTIN 300 MG CAP PO SCH; -LEVO150T9 PO; -LISI10TA PO; +LR 15ML/HR IV SCH; +METOCLOPRAMIDE HCL 10 MG TABLET PO SCH; -ONDA-170 PO; -PEDICHW34 PO; +ROPIVACAINE 0.5% 5 MG/ML 30 ML VIAL ONE; -RXC5 PO; +SCOPOLAMINE 1.5 MG TDSY TD SCH
--- OUTSIDE RECORDS SUMMARY | 2019-03-07 10:59 | External Medical Summary | Continuity of Care Document ---
:1955 Author Name Mariama Maynard, Provider Address Unavailable Unavailable , Care Team Providers Name Role Phone Jeronimo Jacobsen PA-C Unavailable [email or web address] [place], UNKNOWN Unavailable Unavailable Unavailable Unavailable Unavailable Assessments Assessed Problems:Abnormal EKGSinus tachycardiaHypertensionPrediabetes Preoperative cardiovascular examination Problems Left hip pain (719.45) (M25.552) Primary osteoarthritis of left shoulder (715.11) (M19.012) JACQUELIN (obstructive sleep apnea) (327.23) (G47.33) Hypothyroidism (244.9) (E03.9) Preoperative cardiovascular examination (V72.81) (Z01.810) Prediabetes (790.29) (R73.03) Hypertension (401.9) (I10) Sinus tachycardia (427.89) (R00.0) Abnormal EKG (794.31) (R94.31) Allergies and Adverse Reactions No Known Drug Allergies (Allergy) Medications Multi Vitamin TABS; take 1 tablet by mouth once daily with f ood Refills: 0 Tums Ultra 1000 MG CHEW; take 1 tablet by mouth three times a day Refills: 0 metFORMIN HCl - 500 MG Oral Tablet; TAKE 1 TABLET BY MOUTH TWO TIMES DAILY WITH MORNING AND EVENING MEALS Refills: 0 Lisinopril 10 MG Oral Tablet; take 1 tablet by mouth once da carson 15 Tablet Bottle Refills: 0 Meloxicam 15 MG Oral Tablet; take 1 tablet by mouth once jose alfredo ly Refills: 0 Levothyroxine Sodium 150 MCG Oral Tablet; take 1 tablet by m outh once daily Refills: 0 Tylenol Extra Strength 500 MG TABS; TAKE 2 TABELTS BY MOUTH EVERY 6 HOURS NEEDED Refills: 0 dilTIAZem HCl ER 180 MG Oral Capsule Ext ended Release 24 Hour; take 1 tablet by mouth once daily Refills: 0 Xiidra 5 % Ophthalmic Solution; IMSTILL [address] TWO TMES EVERY INTO BOTH EYES APPROXIMATELY 12 HOURS APART Refills: 0 Claritin 10 MG Oral Tablet; take 1 tablet by mouth once jorge y Refills: 0 Flonase Allergy Relief 50 MCG/ACT Nasal Suspension; INSTILL 2 SPRAYS BY INTRANASAL ROUTE EVERY DAY IN EACH NOSTRIL 9.9 ML Saravanan le Refills: 0 Vitamin B12 100 MCG Oral Tablet; take 1 tablet by mouth once daily Refills: 0 Benadryl Allergy 25 MG Oral Tablet; TAKE 1 TABLET BY MOUTH ONCE DAILY EVERY 4-6 HOURS NEEDED Refills: 0 Procedures History of Total Hip Replacement Status: Completed History of hip replacement Status: Compl eted History of Thyroid Surgery Total Thyroidectomy Status: Completed Immunizations Immunizations not documented Social History - Smoking Status Never smoker Interventions Discussion/SummaryMrsMariela Hodges is a 63-year-old obese female with a history of Sleep Apnea, Osteoarthritis s/p Bilateral Hip Replacements, Hypothyroidism, Hypertension, Prediabetes, Sinus Tachycardia, and a ChronicallyAbnormal EKG (Q wave in lead II -- which was cited before 2014) -- who presents today for Preoperative Cardiac Evaluation. She is scheduled to undergo a Left TSA with Dr. Bob in the near future.Patient is physically active on a daily basis and has not experienced any angina pectoris or anginalequivalent symptoms, overt signs or symptoms of heart failure, nor has she had any symptoms suggestive of dysrhythmia recently.Based on her functional status without limiting cardiopulmonary symptoms, stable EKG tracing, and the fact that she tolerated a total hip arthroplasty in June 2018 without cardiac complications-- patient is an acceptable surgical risk to proceed with surgery as scheduled. We recommend she take her usual dose of Diltiazem CD 180 mg the morning of surgery with sips of water. She was advised tohold Lisinopril the morning of surgery. There is no need for further cardiac workup at this time.Patient is to call if any problems, questions, or change in clinical status. She will resume care with her primary wool sorter, Dr. Binh Fiore at [facility] moving forward. Thank you for asking us to see this patient in consultation. Plan of Treatment Planned Observations Planned Goals not documented Results No Known Results Results not documented Vital Signs 16-Feb-2019 8:29 Systolic 138 mm[Hg] Comments: Location: LUE; Position: Sitting Diastolic 86 mm[Hg] Comments: Location: LUE; Position: Sitting Respiration 14 /min Comments: Quality: N ormal Height 64 in BMI Calculated 42.32 kg/m2 Weight 246.5625 lb Heart Rate 80 /min Comments: Location: L Radial; Quality: Regular BSA Calculated 2.14 m2 Encounters Appointment; Jeronimo Jacobsen PA-C 16-Feb-2019 8:30 Encounter Diagnosis: Problem not documented
[2019-03-07] MEDS ORDERED: BACITRACIN INJ 50,000 UNIT VIAL ONE (12:00)
[2019-03-07] MEDS ORDERED: EpINEphrine HCL INJ 1 MG/ML 1ML SYRINGE ONE (12:09)
[2019-03-07] MEDS ORDERED: PROPOFOL IV EMULSION 10 MG/ML 20 ML VIAL IV ONE (12:18)
[2019-03-07] MEDS ORDERED: GLYCOPYRROLATE 0.2 MG/ML VIAL ONE (12:18)
[2019-03-07] MEDS ORDERED: SUCCINYLCHOLINE CHLORIDE 20 MG/ML 10 ML VIAL ONE (12:18)
[2019-03-07] MEDS ORDERED: DEXAMETHASONE SOD INJ 4 MG/ML VIAL ONE (12:18)
[2019-03-07] MEDS ORDERED: LIDOCAINE HCL 2% 2 ML VIAL/AMP(20MG/ML) INFIL ONE (12:18)
[2019-03-07] MEDS ORDERED: PHENYLEPHRINE HCL 10 MG/ML VIAL ONE (12:18)
[2019-03-07] MEDS ORDERED: fentaNYL citrate 100 MCG/2 ML VIAL ONE ×2 (12:18→16:28)
[2019-03-07] MEDS ORDERED: NEOSTIGMINE METHYLSULFATE 5 MG/5 ML SYR ONE (12:18)
[2019-03-07] MEDS ORDERED: ePHEDrine sulfate 50 MG/ML AMP ONE (12:18)
[2019-03-07] MEDS ORDERED: ONDANSETRON INJ 2 MG/ML 2 ML VIAL ONE (12:18)
[2019-03-07] MEDS ORDERED: MIDAZOLAM HCL 1 MG/ML 2ML VIAL ONE ×2 (12:19)
--- NOTE | 2019-03-07 14:22 | History & Physical Bridge Note ---
Date of Service March 07, 2019 History & Physical Bridge Note I have examined the patient, reviewed the History & Physical and in the interval since the performance of the History & Physical I have noted the following changes of clinical significance: no changes noted
[2019-03-07] MEDS ORDERED: ATROPINE SULFATE 0.1 MG/ML 10ML SYR IV PRN (15:19)
[2019-03-07] MEDS ORDERED: ONDANSETRON INJ 2 MG/ML 2 ML VIAL IV PRN ×2 (15:19→19:08)
[2019-03-07] MEDS ORDERED: ePHEDrine sulfate 50 MG/ML AMP IV PRN (15:19)
[2019-03-07] MEDS ORDERED: CHECK SCOPOLAMINE PATCH PLACEMENT SCH (16:00)
[2019-03-07] MEDS ORDERED: LABETALOL HCL IV 5 MG/ML 20ML IV ONE (17:20)
--- NOTE | 2019-03-07 17:40 | Operative Report ---
Post Operative Report Pre & Post Diagnosis Operation Date: 03/07/19 13:20 Pre-Op Diagnosis: Left Shoulder Osteoarthritis Post-Op Diagnosis: Left Shoulder Osteoarthritis, biceps tenosynovitis debris biceps tendon sheath Procedure Operation Date: 03/07/19 13:20 Actual Procedures p Left Total Shoulder Arthroplasty(Left) biceps tenodesis tenosynovectomy- Shabbir Bob MD Surgeon Shabbir Bob MD Consumer Experience Consultant Angel NI Estimated Blood Loss 75 Findings Consistent with Post-Op Diagnosis Specimens Humeral head Drains 2 Hemovac Anesthesia Type General Regional Complications none Disposition Accompanied Patient To Recovery: No Disposition: Recovery Room Indications 63-year-old female with chronic left shoulder pain with progressive osteoarthritis on x-rays and failed conservative management she has decreased range of motion pain and significant joint space narrowing. She has had previous arthroscopic surgery Description of Procedure The patient was taken to the operating room and anesthetized under a general and regional block anesthesia. A towel roll was placed under the medial border of the scapula of the left shoulder. The patient's head was placed on a foam headrest and protective eyewear was placed and the extremities were well padded. The arm was draped free in order to manipulate the shoulder as necessary. The shoulder exam demonstrated between 35 and 40 degrees of external rotation only abduction to 70 degrees forward elevation to 130 and moderate obesity. The shoulder was sterilely prepped and draped in the usual sterile fashion. An anterior deltopectoral approach was performed. A longitudinal incision was made in the interval. The skin was incised sharply and subcutaneous tissues di ssected down to the fascia. The cephalic vein was identified and retracted laterally with the deltoid. Any crossing veins were tied off with silk ties and divided. The clavipectoral fascia was divided at the lateral margin of the conjoined tendon and divided up to the level of the coracoacromial ligament which was preserved. The upper 1 cm of the pectoralis was released for inferior exposure. The biceps tendon findings demonstrated chronic tenosynovitis with cartilaginous debris with multiple small loose bodies. The rotator cuff tendon findings demonstrated intact rotator cuff. The circumflex vessels were identified and tied off with silk ties and divided laterally. The fibers and subscapularis were split longitudinally at the level of the circumflex vessels down to the capsule and then reflected off the inferior capsule using a Kitner elevator. The axillary nerve was identified with a tug test and protected with a blunt Shelby retractor. The rotator interval was opened up and extended down to the glenoid. The biceps tendon was identified and a thorough tenosynovectomy was performed removing all the inflamed tenosynovium although loose fragments of cartilage. The biceps was then tenodesed to the pectoralis tendon with inxpim-ik-[id number] #2 FiberWire sutures in the proximal biceps was resected. The subscapularis tendon was taken down with a trans-tendinous incision leaving a cuff of tissue for repair on the lesser tuberosity. The incision was carried down to the tendon and the capsule and a #1 Vicryl suture was placed into the free end of the subscapularis tendon. The capsule was subperiosteally dissected off the inferior neck of the humerus exposing the humeral osteophytes which demonstrated grade 4 eburnated bone central humeral head articular surface with surrounding grade III chondromalacia with peripheral osteophytes. The osteophytes were excised with an artist chisel and a rongeur. The capsular release along the inferior neck of the humerus was completed. The humerus was then retracted posterior to the glenoid with a Fukuda retractor. The remainder of the biceps tendon and labrum was resected. The glenoid findings demonstrated concentric type wear pattern with significant thinning of the articular surface with little cartilage remaining. I did an anterior inferior and posterior inferior release with electrocautery on bone and a Flannery elevator with the axillary nerve continuing to be protected with the blunt Hohmann retractor inferiorly. When the releases were completed and the humeral head was exposed with some extension and external rotation and in anatomic head cut was made using the oscillating saw . The cut surface was sized for a 48 mm component with the Tornier simplicity system being used. The guide for the 48 head was placed in the central guidepin was placed followed by a reamer and central drill and the Manisha trial punch and cup protector. The humeral head was then retracted posterior to the glenoid with Hohmann retractors and Bankart retractor placed anteriorly. A central drill hole was made into the glenoid. The glenoid was sized for a size Cortiloc perform small 30 radius component. The Tornier simplicity total shoulder arthroplasty system was used and the Cortiloc perform glenoid component was chosen. The glenoid was reamed and the central drill widened and the guide for the peg holes was placed in the peg holes were drilled and a trial component was placed with a tight fit. The trial was removed and the glenoid was irrigated with pulsatile lavage antibiotic solution and the drill holes were dried and packed with epinephrine-soaked tampons for hemostasis. The Palacos G cement was vacuum mixed. A trial reduction was performed with a 48 head and the shoulder was stable. The trial and Manisha punch was removed and the humerus cut surface was irrigated with antibiotic solution with bacitracin. After further irrigation and the final components were placed. The final components were the simplicity nucleus size 2 and humeral head 48 x 18. The nucleus was impacted into the humerus leaving a few millimeters proud and then the 48 x 18 head was impacted into the Briggs taper and fully seated with a tight press-fit. The humerus was reduced to the glenoid and stability verified. The subscapularis was repaired with double row fixation with 4.5 mm Mcmahan [employer] Nephew Helicoil anchors medially. All sutures were passed with a free needle in horizontal mattress fashion tied down with surgeon's knots and then the tails were placed in 2-4.5 Mcmahan & Nephew footprints laterally. Additional dalyju-kh-hnaym #2 FiberWire sutures were placed in the soft tissue of the subscapularis tendon and rotator interval which was closed in maximal external rotation. The pectoralis was then closed with [id number] #2 FiberWire suture. 2 Hemovac drains were placed. The deltopectoral interval was closed with ygftfu-[id number] #1 Vicryl sutures. Range of motion was 140 degrees forward elevation 90 degrees abduction and 45 degrees extra rotation without tension on repair. The subcutaneous tissues were closed with interrupted 2-0 Vicryl and the skin was closed with heather and a sterile dressing was applied. The patient tolerated the procedure well. Angel NI my physician case management assistant, assisted in soft tissue retraction instrument management suture management and assisted in the subcutaneous and skin closure and will participate in the postoperative care the patient. I attest to the content of the Intraoperative Record and any orders documented therein. Any exceptions are noted below.
--- NOTE | 2019-03-07 18:07 | XRay Report ---
XR shoulder LT min 2V routine CLINICAL HISTORY: 63 years-old Female presenting with Post shoulder surgery. TECHNIQUE: Frontal and transcatheter Y views of the left shoulder were obtained. COMPARISON: Comparison made to chest x-ray from 06/02/2017. FINDINGS: Postsurgical changes of left shoulder arthroplasty. No malalignment or periprosthetic fracture. Widen ing of the AC joint may be on a chronic or postsurgical basis. Overlying skin heather. A surgical juan jose in is in place. Expected soft tissue emphysema. Low lung volume of the visualized portion of the left lung with left basilar and central opacity. Surgical clip projects over the left base of the neck. IMPRESSION: 1. Expected postsurgical appearance status post left shoulder arthroplasty. 2. Left lung atelectasis suspected. Electronically signed by: Josh Vazquez M.D. 03/07/2019 6:05 PM
--- NOTE | 2019-03-07 18:15 | Anesthesiology Progress Note ---
Date of Service March 07, 2019 Anesthesia Post Procedure Vital Signs Vital Signs: Temp Pulse Pulse Resp BP Pulse Ox 03/07/19 18:05 91 H 22 129/69 93 03/07/19 17:55 94 H 20 127/69 93 03/07/19 17:45 99 H 24 123/86 92 03/07/19 17:37 36.2 C L 99 H 23 129/74 93 03/07/19 11:52 36.9 C 98 H 20 148/99 H 96 Pain Intensity Left Shoulder: Pain Intensity: 0 Transfer of Care Handoff Completed per policy Notes Mental Status: alert / awake / arousable and participated in evaluation Patient Amnestic to Procedure: Yes Nausea / Vomiting: adequately controlled Pain: adequately controlled Airway Patency, RR, SpO2: stable & adequate BP & HR: stable & adequate Hydration State: stable & adequate Anesthetic Complications: no major complications apparent and Pt Satisfied with anesthetic care Notes: block is functioning well
[2019-03-07] MEDS: fentaNYL citrate 100 MCG/2 ML VIAL IV PRN ×2 (18:17→18:22)
[2019-03-07] MEDS ORDERED: NALOXONE HCL 0.4 MG/1 ML VIAL/CARP IV PRN (19:08)
[2019-03-07] MEDS ORDERED: SODIUM CHLORIDE 0.9% 1000ML 1,000 ML IV SCH (19:08)
[2019-03-07] MEDS ORDERED: MAGNESIUM HYDROXIDE SUSP 30 ML UDC PO PRN (19:08)
[2019-03-07] MEDS ORDERED: BISACODYL 10 MG SUPP PR PRN (19:08)
[2019-03-07] MEDS ORDERED: HYDROmorphone INJ 0.5 MG/0.5 ML SYR IV PRN (19:08)
[2019-03-07] MEDS ORDERED: DEXTROSE 50% 50 ML SYRINGE IV PRN (19:34)
[2019-03-07] MEDS ORDERED: GLUCOSE 40% GEL 15 GM TUBE PO PRN (19:34)
[2019-03-07] MEDS ORDERED: GLUCOSE 10 TABS/TUBE PO PRN (19:34)
[2019-03-07] MEDS ORDERED: GLUCAGON FOR INJ 1 MG VIAL SQ PRN (19:34)
[2019-03-07] MEDS ORDERED: CARBOHYDRATES FOR HYPOGLYCEMIA PO PRN (19:34)
[2019-03-07] MEDS: CHOLECALCIFEROL 1,000 UNITS TAB PO SCH (20:52)
[2019-03-07] MEDS: DOCUSATE SODIUM 100 MG CAP PO SCH (20:52)
[2019-03-07] MEDS: SENNA 8.6 MG TAB PO SCH (20:53)
--- NOTE | 2019-03-07 21:05 | Hospitalist Consultation ---
Date of Consultation March 07, 2019 Assessment & Plan (1) Status post shoulder surgery: Final Assessment and Recommendations as follows : OA, L shoulder sp surgery, clinically well Hypertension, stable Hyperlipidemia on statin Rx Hypothyroidism, euthyroid as of recent outpatient TSH from 2 months ago Prediabetes on metformin, recent outpatient hemoglobin A1c of 6.1 last January 2019 Continue home lisinopril in a.m. if serum creatinine within normal limits Hold Metformin inpatient. ISS BG goal 140-180 DVT prophylaxis as per postop Orthopedic orders. Thank you very much for this consultation. Dr. Cruz will follow patient's progress. (2) HTN (hypertension): History of Present Illness Reason for Consultation: Medical management Requesting Physician: Dr. Bob Attending Physician: Shabbir Bob MD History of Present Illness PCP : Dr. Solis history obtained from patient and records. Medical history significant for hypertension, hyperlipidemia, hypothyroidism, prediabetes, JACQUELIN status post surgery. Patient underwent left shoulder surgery for arthritis today. Patient denies chest pain, S OB postop. Postop pain controlled. 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 Allergies Allergy/AdvReac Type Severity Reaction Status Date / Time alcaftadine [From Lastacaft] AdvReac Mild Verified 03/07/19 11:49 clavulanic acid AdvReac Mild DYSURIA Verified 01/30/19 11:48 Home Medications Home Medications Medication Instructions Recorded Confirmed Type acetaminophen 1,000 mg PO Q6H PRN 01/30/19 03/07/19 History betamethasone dipropionate 1 applic TOPICAL DAILY PRN 01/30/19 03/07/19 History calcium carbonate 1,000 mg PO TID 01/30/19 03/07/19 History cholecalciferol (vitamin D3) 1,000 unit PO QPM 01/30/19 03/07/19 History [Vitamin D3] cyanocobalamin (vitamin B-12) 500 mcg PO 3XWK 01/30/19 03/07/19 History [Vitamin B-12] diltiazem HCl 180 mg PO QAM 01/30/19 03/07/19 History diphenhydramine HCl 25 mg PO Q8H PRN 01/30/19 03/07/19 History levothyroxine 150 mcg PO QAM 01/30/19 03/07/19 History lisinopril 10 mg PO QAM 01/30/19 03/07/19 History loratadine 10 mg PO QAM 01/30/19 03/07/19 History metformin 1,000 mg PO QDD 01/30/19 03/07/19 History multivitamin 2 tab PO QDD 01/30/19 03/07/19 History Patient History Medical History Sinus tachycardia (Chronic) Dyslipidemia (Chronic) Prediabetes (Chronic) H/O Betty thyroiditis (Chronic) GERD (gastroesophageal reflux disease) (Chronic) HTN (hypertension) (Chronic) Hx of sleep apnea (Resolved) HAD TONSILS REMOVED - NO LONGER HAS ISSUES Hypertension Pre-diabetes Tachycardia ON MEDS Surgical History History of open reduction and internal fixation (ORIF) procedure LEFT TIBIAL PLATEAU Hx of bilateral hip replacements Hx of ovarian cystectomy Hx of shoulder surgery LEFT SCOPED Hx of tonsillectomy Hx of total thyroidectomy Nausea and vomiting after administration of anesthetic agent S/P UPPP (uvulopalatopharyngoplasty) 12/20/12 - ETT #7.5, placed under DVL x 1 Family History Grandmother (Maternal) Family history of diabetes mellitus Uncle Family history of diabetes mellitus Social History Preferred Language: Bulgarian Communication Ability: Effective Beliefs That Will Affect Care: None Current Living Situation: Spouse Feels Safe at Home: Yes Safety Concerns: Feels Safe At This Time Smoking Status: Never smoker Do You Dip or Chew Tobacco: No ; Second Hand Exposure: No ; Hx Alcohol Use: Yes Hx Substance Use: No Review of Systems Review of Systems: As per HPI, all 10 systems reviewed, all other ROS negative Physical Exam Physical Exam: GENERAL: Comfortable, obese, no respiratory distress SKIN: Normal color, warm HEENT: Bespectacled, pink palpebral conjunctivae, no ptosis, moist buccal mucosa, nasal cannula in place NECK : Supple, short, no tenderness CHEST : CTA, no tenderness HEART : RRR, no obvious murmurs ABDOMEN: Some distention, nontender EXTREMITIES : Sling over LUE, minimal LE swelling/tenderness, no other conspicuous deformities noted NEUROLOGIC : Coherent, no facial asymmetry, no other gross focality Results & Data Vital Signs (Past 12 Hours) Vital Signs Temp Pulse Pulse Resp BP Pulse Ox 03/07/19 20:28 36.6 C 94 H 18 127/85 94 03/07/19 19:35 36.4 C L 96 H 18 124/79 95 03/07/19 19:00 36.4 C L 92 H 16 113/74 93 03/07/19 18:45 97 H 20 118/72 94 03/07/19 18:35 90 18 120/74 93 03/07/19 18:25 36.4 C L 91 H 15 125/72 93 03/07/19 18:15 92 H 20 106/76 93 03/07/19 18:05 91 H 22 129/69 93 03/07/19 17:55 94 H 20 127/69 93 03/07/19 17:45 99 H 24 123/86 92 03/07/19 17:37 36.2 C L 99 H 23 129/74 93 03/07/19 11:52 36.9 C 98 H 20 148/99 H 96
[2019-03-07] MEDS ORDERED: BETAMETHASONE DIP AUG (DIPROLENE) 0.05% CR 15 GM TUBE EXT PRN (21:15)
[2019-03-07] MEDS: ACETAMINOPHEN 500 MG TAB PO SCH (22:12)
[2019-03-07] MEDS: CEFAZOLIN 2000MG 2,000 MG/15 ML SYR IV SCH (22:13)
[2019-03-07] MEDS: INSULIN ASPART 100 UNITS/ML 3 ML PEN SC SCH (22:22)
[2019-03-08] MEDS: LEVOTHYROXINE SODIUM 150 MCG TABLET PO SCH (05:39)
[2019-03-08] MEDS: CEFAZOLIN 2000MG 2,000 MG/15 ML SYR IV SCH (05:39)
[2019-03-08] MEDS: ACETAMINOPHEN 500 MG TAB PO SCH ×3 (05:39→21:33)
[2019-03-08 07:00] LABS: Basophils # (auto) 0.01 K/uL (0-0.2); Basophils % (auto) 0.1 %; Hematocrit (blood only) 37.8 % (37-47); Hemoglobin 12.7 g/dL (12.0-16.0); Immature Granulocytes # (auto) 0.03 K/uL (0.00-0.02); Immature Granulocytes % (auto) 0.2 %; Lymphocytes # (auto) 1.16 K/uL (1.2-3.4); Lymphocytes % (auto) 8.2 %; Mean Corpuscular Hgb Conc 33.6 g/dL (32-36); Mean Corpuscular Volume 90.6 fL (80-100); Mean Platelet Volume 9.8 fL (7.4-10.4); Monocytes # (auto) 1.18 K/uL (0.11-0.59); Monocytes % (auto) 8.3 %; Neutrophils # (auto) 11.83 K/uL (1.4-6.5); Neutrophils % (auto) 83.2 %; Platelet Count 324 K/uL (130-400); RDW Coefficient of Variation 14.3 % (11.5-14.5); RDW Standard Deviation 47.8 fL (36.4-46.3); Red Blood Count 4.17 M/uL (4.2-5.4); White Blood Count 14.21 K/uL (4.8-10.8)
[2019-03-08 07:39] LABS: BUN Creatinine Ratio 15.5 (10-20); Calcium 7.6 mg/dl (8.5-10.1); Creatinine Clr Calc Pharmacy 62.8 ml/min; Est GFR (African American) 62.4; Est GFR (Non-African American) 53.8
--- NOTE | 2019-03-08 08:08 | Orthopedic Progress Note ---
Date of Service March 08, 2019 Assessment & Plan (1) Status post shoulder surgery: POD #1, Left TSA, Biceps tenodesis PT/ OT DVT proph- ASA D/C planning- Home w OPPT. As per medicine. Subjective POD #1, Doing well. Denies SOB, CP, N/V. Pain controlled well. Physical Exam Physical Exam: Left shoulder dressings c/d/i, no drainage. Drain in tact. Fingers mobile. Sling in tact. A&Ox3. Results & Data Vital Signs (Past 12 Hours) Vital Signs Temp Pulse Pulse Resp BP Pulse Ox 03/08/19 07:27 37.0 C 99 H 18 106/69 90 03/08/19 03:51 36.7 C 97 H 20 105/70 90 03/07/19 23:15 36.8 C 93 H 18 124/84 94 03/07/19 21:12 36.6 C 102 H 18 95 03/07/19 20:28 36.6 C 94 H 18 127/85 94
[2019-03-08] MEDS: DOCUSATE SODIUM 100 MG CAP PO SCH ×2 (08:57→21:32)
[2019-03-08] MEDS: ASPIRIN 81 MG ECTAB PO SCH (08:57)
[2019-03-08] MEDS: LORATADINE 10 MG TAB PO SCH (08:57)
[2019-03-08] MEDS: LISINOPRIL 10 MG TAB PO SCH (08:57)
[2019-03-08] MEDS ORDERED: MULTIVITAMIN TAB PO SCH ×2 (09:00→16:30)
[2019-03-08] MEDS: OXYCODONE HCL IR 5 MG TAB (IMMEDIATE RELEASE) PO PRN ×4 (09:07→23:52)
[2019-03-08] MEDS: INSULIN ASPART 100 UNITS/ML 3 ML PEN SC SCH ×4 (09:08→21:32)
[2019-03-08] MEDS: dilTIAZem ER 180 MG CAPCR PO SCH (09:09)
--- NOTE | 2019-03-08 09:30 | Hospitalist Progress Note ---
Date of Service March 08, 2019 Assessment & Plan (1) Status post shoulder surgery: Post op day# 1 S/P L total shoulder by Dr Bob EBL #75ml Hemovac output #230ml -pain management per ortho -wound management per ortho -PT/OT as appropriate -DVT prophylaxis per ortho -incentive spirometry -H/H: 12.7/37.8, Hgb was 14 pre-op on 02/05/19 (2) Sinus tachycardia: History inappropriate sinus tachycardia. Follows with Cardiology - Dr Fiore HR 90-113 EKG: sinus tachycardia, rate 103, RBBB, inferior infarct (both noted on prior out patient EKG's) -Most recent HR of 113 obtained prior to dose of diltiazem this am, suspect HR will decrease after dose -Monitor HR -Continue diltiazem (3) Leukocytosis: WBC: 14 Afebrile, no productive cough, SOB, CP, urinary symptoms, abdominal pain, vomiting or diarrhea Pt received Decadron yesterday -Monitor CBC -Monitor for any signs, symptoms of infection (4) HTN (hypertension): Stable -Continue diltiazem, lisinopril (5) H/O Betty thyroiditis: TSH: 0.6 on 12/23/18 -Continue levothyroxine (6) Prediabetes: A1c: 6.1 on 02/06/19 BSGs: 130-168 past 24 hours -Hold metformin -Novolog sliding scale per protocol DVT Prophylaxis -SCDs, ASA per ortho Disposition per primary service Pt was seen and care coordinated with Dr Cruz. See addendum Supervising Physician Co-Signing Physician Notes Pt was seen and examined. Agreed with Gunjan PARKINSON exam, assessment and plan. S/P day# 1 S/P L total shoulder performed by Dr Bob. No post-op complications. Continue pain controlled. Hemoglobin stable. Continue PT/OT. fall precaution. MD Anthony Subjective Pt seen and examined sitting up in bedside chair. Reports has some left shoulder pain today after PT. At rest pain is ok. Eating and drinking well and denies any N/V. Urinating without difficulty and no dysuria, hematuria or frequency. No BM yet today. Reports chronic dry cough with allergic rhinitis. Denies any increased cough. Has chronic sinus tachycardia. Denies SOB, CP, palpitations, fever/chills, diaphoresis, VICTOR, dizziness, syncope, neck pain, sore throat, choking, abdominal pain, paresthesias, extremity edema, rashes. Review of Systems Review of Systems: All systems reviewed & are unremarkable except as noted in HPI & below Physical Exam Physical Exam: General: no acute distress, obese Head: normocephalic, atraumatic Eyes: conjunctiva non-injected, anicteric ENT: normal inspection external ears, nose, mucous membranes moist Neck: supple, trachea midline Lungs: clear, no respiratory distress, no wheezing/rhonchi/rales CV: tachy at 110, regular rhythm, no murmur, no pretibial edema Abd: normal BS, soft, non-tender Ext:no calf tenderness; LUE: surgical dressing to shoulder in place and is dry, hemovac in place, ROM fingers intact, sensation to light touch intact, brisk capillary refill Neuro: A&O x 3, no focal deficits noted, normal affect Skin: warm, dry Results & Data Vital Signs (Past 12 Hours) Vital Signs Temp Pulse Pulse Resp BP Pulse Ox 03/08/19 09:03 113 H 136/82 03/08/19 07:27 37.0 C 99 H 18 106/69 90 03/08/19 03:51 36.7 C 97 H 20 105/70 90 03/07/19 23:15 36.8 C 93 H 18 124/84 94 Laboratory Results Short CBC 03/08/19 Range/Units 06:19 WBC 14.21 H (4.8-10.8) K/uL Hgb 12.7 (12.0-16.0) g/dL Hct 37.8 (37-47) % Plt Count 324 (130-400) K/uL [facility] 03/08/19 06:19 Sodium 139 Potassium 4.0 Chloride 104 Carbon Dioxide 26 BUN 17 Creatinine 1.08 Glucose 127 H Calcium 7.6 L
[2019-03-08] MEDS: CALCIUM CARBONATE 1250MG TAB PO SCH ×2 (14:22→21:32)
[2019-03-08] MEDS ORDERED: METFORMIN HCL 500 MG TAB PO SCH (16:30)
[2019-03-08] MEDS: CHOLECALCIFEROL 1,000 UNITS TAB PO SCH (21:32)
[2019-03-08] MEDS: SENNA 8.6 MG TAB PO SCH (21:32)
[2019-03-09 05:46] LABS: Basophils # (auto) 0.03 K/uL (0-0.2); Basophils % (auto) 0.2 %; Eosinophils # (auto) 0.05 K/uL (0-0.5); Eosinophils % (auto) 0.4 %; Hematocrit (blood only) 34.7 % (37-47); Hemoglobin 11.2 g/dL (12.0-16.0); Immature Granulocytes # (auto) 0.04 K/uL (0.00-0.02); Immature Granulocytes % (auto) 0.3 %; Lymphocytes # (auto) 2.72 K/uL (1.2-3.4); Lymphocytes % (auto) 19.6 %; Mean Corpuscular Hgb Conc 32.3 g/dL (32-36); Mean Corpuscular Volume 92.8 fL (80-100); Mean Platelet Volume 9.9 fL (7.4-10.4); Monocytes # (auto) 1.54 K/uL (0.11-0.59); Monocytes % (auto) 11.1 %; Neutrophils # (auto) 9.52 K/uL (1.4-6.5); Neutrophils % (auto) 68.4 %; Platelet Count 283 K/uL (130-400); RDW Coefficient of Variation 14.9 % (11.5-14.5); RDW Standard Deviation 50.6 fL (36.4-46.3); Red Blood Count 3.74 M/uL (4.2-5.4)
[2019-03-09] MEDS: ACETAMINOPHEN 500 MG TAB PO SCH (06:01)
[2019-03-09] MEDS: LEVOTHYROXINE SODIUM 150 MCG TABLET PO SCH (06:01)
[2019-03-09 06:14] LABS: BUN Creatinine Ratio 24.5 (10-20); Calcium 7.6 mg/dl (8.5-10.1); Creatinine Clr Calc Pharmacy 54.3 ml/min; Est GFR (African American) 52.3; Est GFR (Non-African American) 45.1
--- NOTE | 2019-03-09 07:33 | Orthopedic Progress Note ---
Date of Service March 09, 2019 Assessment & Plan (1) Status post shoulder surgery: POD #2, Left TSA, Biceps tenodesis PT/ OT DVT proph- ASA D/C planning- Home w OPPT today. As per medicine. Subjective POD #2, Doing well, Denies SOB, CP, N/V. Pain is a bit worse this AM but tolerable. BUN/ Cr up a bit this AM Physical Exam Physical Exam: Left shoulder dressings c/d/i, no drainage, fingers mobile, sling in tact, A&Ox3. Results & Data Vital Signs (Past 12 Hours) Vital Signs Temp Pulse Resp BP Pulse Ox 16/ 06:39 36.7 C 94 H 18 120/74 91 03/08/19 22:40 36.6 C 86 16 111/71 92
[2019-03-09] MEDS: OXYCODONE HCL IR 5 MG TAB (IMMEDIATE RELEASE) PO PRN (07:43)
[2019-03-09] MEDS: CALCIUM CARBONATE 1250MG TAB PO SCH (07:44)
[2019-03-09] MEDS: LORATADINE 10 MG TAB PO SCH (07:44)
[2019-03-09] MEDS: DOCUSATE SODIUM 100 MG CAP PO SCH (07:44)
[2019-03-09] MEDS: LISINOPRIL 10 MG TAB PO SCH (07:45)
[2019-03-09] MEDS: dilTIAZem ER 180 MG CAPCR PO SCH (07:45)
[2019-03-09] MEDS: ASPIRIN 81 MG ECTAB PO SCH (07:46)
[2019-03-09] MEDS: INSULIN ASPART 100 UNITS/ML 3 ML PEN SC SCH (07:49)
[2019-03-09] MEDS ORDERED: CYANOCOBALAMIN 500 MCG TABLET (VITAMIN B-12) PO SCH (09:00)
--- NOTE | 2019-03-13 13:59 | Discharge Summary ---
DISCHARGE DIAGNOSES: Degenerative joint disease, left shoulder with biceps tenosynovitis. SECONDARY DIAGNOSES: Hypertension, hypercholesterolemia, history of tachycardia, sleep apnea, prediabetic, hypothyroidism, osteoarthritis, obesity, renal calculi. CONSULTS: Dr. Joya. COMPLICATIONS: None. PROCEDURES: Left total shoulder arthroplasty and biceps tenodesis with tendon synovectomy by Dr. Bob on 03/07/2019. BRIEF HISTORY: As dictated in the history and physical. HOSPITAL SUMMARY: The patient was admitted on the above-noted date and had the above-noted surgery performed, which she tolerated well. [facility] and continued to follow the patient during her stay. On her first postoperative day, she was doing well and had no complaints. Pain was controlled. Dressings were intact. No drainage. Drain was intact. Fingers were mobile. Sling was intact and vital signs were stable and she was started on PT and OT protocols, DVT prophylaxis and continued on pain management. By her second postoperative day, she continued to do well and had no complaints. Denied shortness of breath, chest pain, nausea, vomiting. Pain was little bit worse that morning, but was tolerable. BUN and creatinine were up slightly that morning. Shoulder dressings were clean, dry and intact. She had no drainage. Fingers were mobile. Sling was intact. Vital signs were stable and she was afebrile. She was otherwise remaining stable and it was felt she could be discharged to home on 03/09/2019. For further review, please see chart. LABORATORY AND X-RAY DATA: As per chart. DISCHARGE INSTRUCTIONS: The patient was discharged to home in satisfactory condition on 03/09/2019. Diet: Diabetic. Activity: Nonweightbearing on the affected extremity. Follow total shoulder arthroplasty instructions and special care instructions as noted and follow up with Dr. Bob in 2 weeks. The patient is to call for appointment if one has not been made for you. DISCHARGE MEDICATIONS: Acetaminophen 1000 mg p.o. q. 8 hours, aspirin 81 mg p.o. q.a.m., oxycodone 5 mg p.o. q. 4 hours p.r.n. Resume home meds as listed and stop taking previous acetaminophen dosage.
== END 2019-03-09 11:11 | disposition home or self-care (01) | DRG 483 ==
LOC: ASU 10:52 → 3E 17:47
DX: E78.5 Hyperlipidemia, unspecified; E66.9 Obesity, unspecified; M19.012 Primary osteoarthritis, left shoulder; Z96.643 Presence of artificial hip joint, bilateral; R73.03 Prediabetes; I10 Essential (primary) hypertension; Z68.41 Body mass index [BMI] 40.0-44.9, adult; Z79.84 Long term (current) use of oral hypoglycemic drugs; Z83.3 Family history of diabetes mellitus; M75.22 Bicipital tendinitis, left shoulder; E03.9 Hypothyroidism, unspecified

== ENCOUNTER 2022-06-16 06:52 | Observation (INO) ==
--- NOTE | 2022-05-21 11:51 | PAT Medication Instructions ---
Medication Instructions Date of Service May 21, 2022 Home Medications betamethasone dipropionate 0.05 % lotion 1 applic topical DAILY PRN calcium carbonate 500 mg calcium (1,250 mg) tablet 1,000 mg PO TID cholecalciferol (vitamin D3) 25 mcg (1,000 unit) tablet (Vitamin D3) 1,000 unit PO QPM cyanocobalamin (vitamin B-12) 500 mcg tablet (Vitamin B-12) 500 mcg PO 3XWK diphenhydramine HCl 25 mg tablet 25 mg PO Q8H PRN levothyroxine 150 mcg tablet 150 mcg PO QAM loratadine 10 mg tablet 10 mg PO QAM multivitamin 2 tab PO QDD meloxicam 15 mg tablet 15 mg PO DAILY atorvastatin 20 mg tablet (Lipitor) 20 mg PO QAM diltiazem HCl 360 mg capsule,24 hr,extended release 360 mg PO QAM lisinopril 20 mg tablet 20 mg PO QAM metformin 500 mg tablet 1,000 mg PO BID semaglutide 14 mg tablet (Rybelsus) 14 mg PO QAM Continue as directed cyanocobalamin (vitamin B-12) 500 mcg tablet (Vitamin B-12) 500 mcg PO 3XWK (do NOT take day of surgery) ASK your surgeon for instructions meloxicam 15 mg tablet 15 mg PO DAILY STOP taking 24 hours before surgery betamethasone dipropionate 0.05 % lotion 1 applic topical DAILY PRN DO NOT take the morning of surgery calcium carbonate 500 mg calcium (1,250 mg) tablet 1,000 mg PO TID diphenhydramine HCl 25 mg tablet 25 mg PO Q8H PRN loratadine 10 mg tablet 10 mg PO QAM multivitamin 2 tab PO QDD lisinopril 20 mg tablet 20 mg PO QAM metformin 500 mg tablet 1,000 mg PO BID semaglutide 14 mg tablet (Rybelsus) 14 mg PO QAM Take morning of surgery With a small sip of water, OTHERWISE NOTHING TO EAT OR DRINK AFTER MIDNIGHT: levothyroxine 150 mcg tablet 150 mcg PO QAM atorvastatin 20 mg tablet (Lipitor) 20 mg PO QAM diltiazem HCl 360 mg capsule,24 hr,extended release 360 mg PO QAM Take evening before surgery calcium carbonate 500 mg calcium (1,250 mg) tablet 1,000 mg PO TID cholecalciferol (vitamin D3) 25 mcg (1,000 unit) tablet (Vitamin D3) 1,000 unit PO QPM diphenhydramine HCl 25 mg tablet 25 mg PO Q8H PRN(if needed) metformin 500 mg tablet 1,000 mg PO BID Other Notes If you have any questions please call us at [phone] or [phone] or or [phone]
--- NOTE | 2022-05-26 13:27 | Anesthesiology Consultation ---
Date of Service May 26, 2022 Assessment & Plan (1) Encounter for pre-operative examination: - echocardiogram 05/27/22 per pt. - PCP pre-op evaluation 06/03/22. PAT testing and optimization form faxed to PCP. - PONV: to anesthesiologist determination am DOS if pt to receive scopolamine patch vs alternate agents. - cardiology 04/02/22 [facility]: "...inappropriate sinus tachycardia...doing well...denies any cardiac complaints...may need knee replacement surgery...doing well...update an echo...follow-up in 6 months. In terms of her preop risk assessment she was counseled that I would place her as a low risk for any adv erse perioperative cardiovascular event with her risk being approximately less than 1%...no further cardiac testing intervention would further lower that risk...accepting of that risk and wishes to proceed..." Chart Review Chart Review: Pending: Refer to Additional Notes / Consult section and Patient seen in Pre Admission Testing Teaching & Discussion Pre-Anesthesia Teaching/Discussion Notes: Instructed NPO after midnight before surgery, except medications with 15 cc of water. Medication instructions provided according to the PAT guidelines. History Surgery Operation Date: 06/16/22 09:30 Proposed Procedures p Right Total Knee Arthroplasty - Shabbir Bob MD Height/Weight Height: 5 ft 4 in Weight: 99.79 kg Allergies Allergy/AdvReac Type Severity Reaction Status Date / Time ragweed pollen Allergy Mild WATERY Verified 05/20/22 11:45 EYES, SNEEZING alcaftadine [From Last[facility]] AdvReac Mild RED/BURNING Verified 05/20/22 11:46 EYES clavulanic acid AdvReac Mild DYSURIA Verified 05/20/22 11:45 Medications Home Medications Medication Instructions Recorded Confirmed Last Taken betamethasone dipropionate 0.05 % 1 applic topical DAILY PRN SKIN 01/30/19 05/20/22 03/05/19 21:00 lotion ISSUES calcium carbonate 500 mg calcium 1,000 mg PO TID 01/30/19 05/20/22 04/29/19 (1,250 mg) tablet cholecalciferol (vitamin D3) 25 1,000 unit PO QPM 01/30/19 05/20/22 04/29/19 mcg (1,000 unit) tablet (Vitamin D3) cyanocobalamin (vitamin B-12) 500 500 mcg PO 3XWK 01/30/19 05/20/22 04/29/19 mcg tablet (Vitamin B-12) diphenhydramine HCl 25 mg tablet 25 mg PO Q8H PRN Itching 01/30/19 05/20/22 03/05/19 08:00 levothyroxine 150 mcg tablet 150 mcg PO QAM 01/30/19 05/20/22 04/30/19 06:45 loratadine 10 mg tablet 10 mg PO QAM 01/30/19 05/20/22 04/30/19 06:45 multivitamin 2 tab PO QDD 01/30/19 05/20/22 04/29/19 meloxicam 15 mg tablet 15 mg PO DAILY 04/30/19 05/20/22 04/16/19 atorvastatin 20 mg tablet (Lipitor) 20 mg PO QAM 05/20/22 05/20/22 Unknown diltiazem HCl 360 mg capsule,24 360 mg PO QAM 05/20/22 05/20/22 Unknown hr,extended release lisinopril 20 mg tablet 20 mg PO QAM 05/20/22 05/20/22 Unknown metformin 500 mg tablet 1,000 mg PO BID 05/20/22 05/20/22 Unknown semaglutide 14 mg tablet (Rybelsus) 14 mg PO QAM 05/20/22 05/20/22 Unknown Past Medical History Medical History (Updated 05/26/22 @ 13:42 by Amelia Naranjo PA-C) Dyslipidemia GERD (gastroesophageal reflux disease) controlled, stable per pt H/O Betty thyroiditis History of kidney stones NO SURGERY Hx of sleep apnea Hypertension controlled, stable per pt Hypothyroidism Needle phobia "worst nightmare" Prediabetes on oral medications, pt denies DM dx Tachycardia inappropriate sinus tachycardia, follows with S cardio, upcoming echo 05/27/22 Patient denies h/o stroke, seizures, heart attack, heart failure, blood clots or blood transfusions. Exercise / Class Metabolic Activity II 4-5 Yardwork/Stairs/Walk up hill (denies CP or SOB with 1 FOS) Past Family History Family History Grandmother (Maternal) Family history of diabetes mellitus Uncle Family history of diabetes mellitus Other No family history of adverse response to anesthesia Past Surgical History Surgical History (Updated 05/26/22 @ 13:34 by Amelia Naranjo PA-C) History of cataract surgery RT/LEFT History of colonoscopy History of open reduction and internal fixation (ORIF) procedure LEFT TIBIAL PLATEAU History of tonsillectomy and adenoidectomy History of total hip arthroplasty bilat. Right 06/15/17: SAB L3-L4 1 attempt. History of total shoulder replacement LEFT 03/07/19: Grade 1 view, Glidescope 3, ETT 7.5 + PNB. Hx of LASIK Hx of ovarian cystectomy Hx of shoulder surgery LEFT ARTHROSCOPY Hx of total thyroidectomy Nausea and vomiting after administration of anesthetic agent pt believes has received scop patch in past, denies adverse effects S/P UPPP (uvulopalatopharyngoplasty) 12/20/12 [place] teeth removed Past Anesthesia History No Hx of Anesthesia Complications and No Family Hx of Anesthesia Complications History of PONV No Hx of Motion Sickness and History of PONV (pt russell has received scop patch in past, denies adverse effects) Social History Smoking Status: Never smoker Do You Dip or Chew Tobacco: No Hx Alcohol Use: Yes alcohol intake frequency: holidays/special occasions only Hx Substance Use: No substance use type: does not use Review of Systems Mild residual cough, non-productive. States rhinorrhea has resolved. Symptom onset 7 days ago. Patient denies chest pain, shortness of breath, dyspnea on exertion, fever, chills, wheezing, or palpitations. Physical Exam Vital Signs Vitals BP 102/70 manual P 100 TEMP 98.5 SP02 94% on RA RESP 18 Physical Full cervical extension range of motion without pain TMD 3.5 finger breadths Mallampati Score 1 Dentition: intact, several crowns throughout, implants-upper right front and left upper back; denies chipped or loose teeth, bridges Lungs: normal respiratory effort. Clear throughout to auscultation, no adventitious breath sounds Cardiac: regular rate and rhythm, no murmurs noted Carotid arteries: negative bruit bilat Lab Results Anesthesia Preop Results Results Anesthesia Widget: WBC 11.42 K/ul (4.8-10.8) H 05/26/22 Hgb 14.5 g/dl (12.0-16.0) 05/26/22 Hct 44.4 % (34.1-44.9) 05/26/22 Plt 390 K/uL (130-400) 05/26/22 Na 140 mmol/L (136-145) 05/26/22 K 3.5 mmol/L (3.5-5.1) 05/26/22 Cl 102 mmol/L (98-107) 05/26/22 CO2 29 mmol/L (21-32) 05/26/22 BUN 16 mg/dl (6-23) 05/26/22 Creat 0.83 mg/dl (0.6-1.2) 05/26/22 Glucose Level 119 mg/dl (70-99(Fasting)) H 05/26/22 PT 11.2 Seconds (9.0-12.0) 05/26/22 PTT 27.1 Seconds (21.0-31.0) 05/26/22 INR 1.1 (0.9-1.1) 05/26/22 HA1c 5.8 % (4.5-5.6) H 05/26/22 Urine Color Dark Yellow 05/26/22 Urine Appearance Cloudy (Clear) A 05/26/22 Urine pH 5.5 (4.5-7.5) 05/26/22 Urine Specific [place] 1.040 (1.000-1.030) H 05/26/22 Urine Protein 1+ (Negative) H 05/26/22 Urine Glucose (UA) Negative (Negative) 05/26/22 Urine Ketones 1+ (Negative) H 05/26/22 Urine Blood Negative (Negative) 05/26/22 Urine Nitrite Positive (Negative) A 05/26/22 Urine Bilirubin 1+ (Negative) H 05/26/22 Urine Urobilinogen Negative (Negative) 05/26/22 Urine Leukocyte Esterase Trace (Negative) H 05/26/22 Urine WBC (Auto) 5-10 /hpf (0-5) H 05/26/22 Urine RBC (Auto) 5-10 /hpf (0-4) H 05/26/22 Urine Hyaline Casts (Auto) 5-10 /lpf (0-5) H 05/26/22 Urine Epithelial Cells (Auto) >30 /lpf (0-5) H 05/26/22 Urine Bacteria (Auto) Negative (Negative) 05/26/22 Blood Type A Positive 05/26/22 Antibody Screen NEGATIVE 05/26/22 Testing Laboratory Results Surgeon's office made aware of abnormal testing as above including UA. Electrocardiogram Date: 04/02/22 Sinus tachycardia, rate 112 bpm RBBB Inferior infarct, cited on or before 02/05/21 Chest X-Ray Date: 05/26/22 No lines and tubes are seen. Cardiomegaly is noted. Bibasilar atelectasis is noted in the lateral radiograph. No evidence of pleural effusion or pneumothorax. A hiatal hernia is seen. Seminal note is made of a left shoulder arthroplasty. IMPRESSION: No acute chest disease apart from bibasilar atelectasis at the lateral radiograph. COVID-19 Risk Screen Screening Information COVID-19 Screen Date: 05/26/22 Exposure 21 Days Family/Household +COVID Last 21 Days: No Exposure 10 Days Any COVID Exposure Last 10 Days: No Symptoms Last 10 Days Experienced COVID Sx Last 10 Days: Yes + COVID 0-90 Days COVID + in Last 0-90 Days: Yes + COVID Test 0-10 Day: Yes
--- NOTE | 2022-06-15 18:20 | History & Physical Report ---
Date of Service June 15, 2022 Assessment & Plan (1) Primary osteoarthritis of right knee: Plan: Treatment options discussed with the patient. She has failed conservative measures and like to proceed with surgical intervention. Risks, benefits and alternatives to surgery including but not limited to infection, DVT, pain, stiffness, need for revision surgery, damage to blood vessels, damage to nerves, PE, , were discussed with the patient and they wish to proceed. Plan on right total knee arthroplasty scheduled for [facility] on June [address] Bob. We will plan on aspirin 81 mg twice daily for 1 month postop for DVT prophylaxis. We will plan on outpatient PT. All questions answered. Follow-up postop. History of Present Illness Chief Complaint: Right knee pain Primary Care Provider: Latasha Solis MD 66-year-old female with past medical history significant for hypertension, high cholesterol, hypothyroidism who presents with ongoing right knee pain. She has failed conservative measures. Pain is interfering with her daily activities. She would like to proceed with surgical invention. Patient denies headaches, sweats, fevers, chills, double vision, blurred vision, cough, sore throat, dysphagia, chest pain, sob, wheezing, n/v/d/c, numbness, tingling, fatigue, urinary symptoms, mood disorders. ROS positive for right knee pain and stiffness. Allergies Allergy/AdvReac Type Severity Reaction Status Date / Time ragweed pollen Allergy Mild WATERY Verified 05/20/22 11:45 EYES, SNEEZING alcaftadine [From Lastacaft] AdvReac Mild RED/BURNING Verified 05/20/22 11:46 EYES clavulanic acid AdvReac Mild DYSURIA Verified 05/20/22 11:45 Home Medications Medication Instructions Recorded Confirmed Type betamethasone dipropionate 0.05 % 1 applic topical DAILY PRN SKIN 01/30/19 05/20/22 History lotion ISSUES calcium carbonate 500 mg calcium 1,000 mg PO TID 01/30/19 05/20/22 History (1,250 mg) tablet cholecalciferol (vitamin D3) 25 1,000 unit PO QPM 01/30/19 05/20/22 History mcg (1,000 unit) tablet (Vitamin D3) cyanocobalamin (vitamin B-12) 500 500 mcg PO 3XWK 01/30/19 05/20/22 History mcg tablet (Vitamin B-12) diphenhydramine HCl 25 mg tablet 25 mg PO Q8H PRN Itching 01/30/19 05/20/22 History levothyroxine 150 mcg tablet 150 mcg PO QAM 01/30/19 05/20/22 History loratadine 10 mg tablet 10 mg PO QAM 01/30/19 05/20/22 History multivitamin 2 tab PO QDD 01/30/19 05/20/22 History meloxicam 15 mg tablet 15 mg PO DAILY 04/30/19 05/20/22 History atorvastatin 20 mg tablet (Lipitor) 20 mg PO QAM 05/20/22 05/20/22 History diltiazem HCl 360 mg capsule,24 360 mg PO QAM 05/20/22 05/20/22 History hr,extended release lisinopril 20 mg tablet 20 mg PO QAM 05/20/22 05/20/22 History metformin 500 mg tablet 1,000 mg PO BID 05/20/22 05/20/22 History semaglutide 14 mg tablet (Rybelsus) 14 mg PO QAM 05/20/22 05/20/22 History Past Med/Surg History Medical History (Updated 06/15/22 @ 18:19 by Salvador Jaimes PA-C) Dyslipidemia GERD (gastroesophageal reflux disease) controlled, stable per pt H/O Betty thyroiditis History of kidney stones NO SURGERY Hx of sleep apnea Hypertension controlled, stable per pt Hypothyroidism Needle phobia "worst nightmare" Prediabetes on oral medications, pt denies DM dx Tachycardia inappropriate sinus tachycardia, follows with S cardio, upcoming echo 05/27/22 Surgical History (Updated 05/26/22 @ 13:34 by Amelia Naranjo PA-C) History of cataract surgery RT/LEFT History of colonoscopy History of open reduction and internal fixation (ORIF) procedure LEFT TIBIAL PLATEAU History of tonsillectomy and adenoidectomy History of total hip arthroplasty bilat. Right 06/15/17: SAB L3-L4 1 attempt. History of total shoulder replacement LEFT 03/07/19: Grade 1 view, Glidescope 3, ETT 7.5 + PNB. Hx of LASIK Hx of ovarian cystectomy Hx of shoulder surgery LEFT ARTHROSCOPY Hx of total thyroidectomy Nausea and vomiting after administration of anesthetic agent pt believes has received scop patch in past, denies adverse effects S/P UPPP (uvulopalatopharyngoplasty) 12/20/12 [place] teeth removed Family History Grandmother (Maternal) Family history of diabetes mellitus Uncle Family history of diabetes mellitus Other No family history of adverse response to anesthesia Social History Smoking Status: Never smoker Second Hand Exposure: Yes ( A CHILD); Hx Alcohol Use: Yes Hx Substance Use: No Preferred Language: Tuvaluan Communication Ability: Effective Vice President Of Business Development Required: No Beliefs That Will Affect Care: None Current Living Situation: Family Current Living Situation Comment: AND DAUGHTER Feels Safe at Home: Yes Assistive Devices: Glasses Review of Systems All systems reviewed & are unremarkable except as noted in HPI & below Physical Exam Constitutional: well developed and well nourished; no acute distress Eyes: PERRL, conjunctivae normal, anicteric sclerae ENMT: external ear and nose normal, oropharynx normal Neck: trachea midline, no thyromegaly Respiratory: normal respiratory effort, lungs clear to auscultation Cardiovascular: RRR, no murmur, no edema Musculoskeletal: Right knee: Varus alignment. Mild effusion. Tenderness medial joint line, medial patellar facet, lateral patellar facet. Moderate crepitation with range of motion. Positive Dion's. Stable valgus and varus stress test. Range of motion is 10 to 125 degrees. Skin: no rashes, warm and dry Neurologic: patellar DTR's 2+ bilat, sensation intact Psychiatric: A+Ox3, euthymic affect Results & Data ([place]) Diagnostic Findings Right knee radiographs demonstrate end-stage osteoarthritis with [id number] medial compartment. There is para-articular osteophyte formation.
[~2022-06-16 06:52] MED LIST changes: -CEFAZOLIN 2000MG 2,000 MG/15 ML SYR IV SCH; -DEXAMETHASONE SOD INJ 4 MG/ML VIAL ONE; -EPINEPHrine INJ 1 MG/ML AMP ONE; -LR 15ML/HR IV SCH; -ROPIVACAINE 0.5% 5 MG/ML 30 ML VIAL ONE; +ROPIVACAINE 0.5% HCL/PF 150 MG, BUPIVACAINE 0.75% MPF 20 ML, EPINEPHrine 30MG/30ML (OR ... INFIL SCH; -SCOPOLAMINE 1.5 MG TDSY TD SCH; +TRANEXAMIC ACID 1,000 MG **IV Intra-op IV SCH; +TRANEXAMIC ACID 1,000 MG **IV Pre-op IV SCH; +ceFAZolin 2000MG 2,000 MG/15 ML SYR IV SCH; +dexAMETHasone 4 MG TAB PO SCH
[2022-06-16] MEDS ORDERED: BUPIVACAINE 0.5 % 5 MG/1 ML PF 10ML VIAL ONE (07:06)
[2022-06-16] MEDS ORDERED: ROPIVACAINE 0.5% 5 MG/ML 30 ML VIAL ONE (07:06)
[2022-06-16] MEDS ORDERED: MIDAZOLAM HCL 1 MG/ML 2ML VIAL ONE ×2 (08:07)
[2022-06-16] MEDS ORDERED: fentaNYL citrate 100 MCG/2 ML VIAL ONE (08:07)
[2022-06-16] MEDS ORDERED: ATROPINE SULFATE 0.1 MG/ML 10ML SYR IV PRN (09:12)
[2022-06-16] MEDS ORDERED: ePHEDrine sulfate 50 MG/ML AMP IV PRN (09:12)
[2022-06-16] MEDS ORDERED: ONDANSETRON INJ 2 MG/ML 2 ML VIAL IV PRN ×2 (09:12→14:33)
[2022-06-16] MEDS ORDERED: PROMETHAZINE HCL 12.5 MG in SODIUM CHLORIDE 0.9% 50 ML IV PRN (09:12)
[2022-06-16] MEDS ORDERED: HYDROmorphone INJ 2 MG/ML SYR/VIAL IV PRN (09:12)
[2022-06-16] MEDS ORDERED: fentaNYL citrate 100 MCG/2 ML VIAL IV PRN (09:12)
--- NOTE | 2022-06-16 09:45 | History & Physical Bridge Note ---
Date of Service June 16, 2022 History & Physical Bridge Note I have examined the patient, reviewed the History & Physical and in the interval since the performance of the History & Physical I have noted the following changes of clinical significance: no changes noted
[2022-06-16] MEDS ORDERED: ORTHO JOINT ANESTHETIC ONE (09:50)
[2022-06-16] MEDS ORDERED: ONDANSETRON INJ 2 MG/ML 2 ML VIAL ONE (10:40)
[2022-06-16] MEDS ORDERED: PROPOFOL IV EMULSION 10 MG/ML 20 ML VIAL IV ONE ×3 (10:40→12:26)
[2022-06-16] MEDS ORDERED: LIDOCAINE 2% MPF LOCAL 5 ML VIAL INFIL ONE (10:40)
--- NOTE | 2022-06-16 12:37 | Post Operative Brief Note ---
Immediate Post Op Note v1 Date of Surgery June 16, 2022 Pre & Post Diagnosis Operation Date: 06/16/22 09:20 Pre-Op Diagnosis: Primary Osteoarthritis of Right Knee Post-Op Diagnosis: Primary Osteoarthritis of Right Knee I identified the patient and participated in the time-out.: Yes Procedure Operation Date: 06/16/22 09:20 Actual Procedures p Right Total Knee Arthroplasty Cemented(Right), lateral release, crow and Acticoat superficial wound VAC- Shabbir Bob MD Surgeon Shabbir Bob MD Cloak Room Attendant Bo NI Estimated Blood Loss 5 Findings Consistent with Post-Op Diagnosis Specimens Bone cuts Drains Hemovac Drain Anesthesia Type MAC Spinal Regional Complications none Disposition Disposition: Recovery Room Overlapping Procedure I was immediately available: during the entire case.
--- NOTE | 2022-06-16 12:45 | Operative Report ---
Post Operative Report Pre & Post Diagnosis Operation Date: 06/16/22 09:20 Pre-Op Diagnosis: Primary Osteoarthritis of Right Knee Post-Op Diagnosis: Primary Osteoarthritis of Right Knee I identified the patient and participated in the time-out.: Yes Procedure Operation Date: 06/16/22 09:20 Actual Procedures p Right Total Knee Arthroplasty Cemented(Right), lateral release, application superficial wound VAC ro and Acticoat- Shabbir Bob MD Surgeon Shabbir Bob MD Mouthpiece Maker Bo NI Estimated Blood Loss 5 Findings Consistent with Post-Op Diagnosis Specimens Bone cuts Drains 2 Hemovac Anesthesia Type MAC Spinal Regional Complications none Disposition Disposition: Recovery Room Indications 66-year-old female with chronic progressive osteoarthritis in her knee. She has patellofemoral and medial compartment OA with lateral alignment of the patella with joint space narrowing patellofemoral joint on skyline view. Description of Procedure Patient was taken to the operating room placed supine on the operating table and anesthetized under spinal MAC regional block anesthesia. Exam under anesthesia demonstrated 0 through 125 degrees range of motion with patellofemoral crepitation and a moderately obese knee and thigh. A pneumatic tourniquet was placed about the obese thigh of the right lower extremity. The right lower extremity was prepped and draped in usual sterile fashion. The leg was elevated exsanguinated with an Esmarch bandage and the pneumatic tourniquet was raised to 325 mm mercury. An anterior incision was made across the right knee. The skin was incised longitudinally subcutaneous flaps were elevated and an incision was made through the medial retinaculum extending up into the mid third of the quadriceps tendon and extended down to the medial tibial tubercle. Intra- articular findings demonstrated tricompartmental osteoarthritis mainly medial compartment and patellofemoral joint grade 4 patellofemoral joint osteoarthritis grade 4 medial compartment osteoarthritis loose body in the intercondylar notch.. The knee was exposed by excising the infrapatellar fat pad, excising the meniscal remnants and anterior cruciate ligament and the loose body. Any inflamed synovial tissue was resected. The fat pad over the anterior femur was resected for placement of the component in that area. The lateral synovial bands were release. The femur was exposed. The custom femoral cutting block was pinned in position. The distal femoral cutting block was applied. The distal femoral cut was made with the oscillating saw. The size 8, 4-in-1 cutting block was placed. The anterior and posterior chamfer cuts were made. The knee was extended and a subperiosteal peel lateral release was performed around the patella. The patella width was measured and width was reproduced using freehand cut technique. The 32 millimeter symmetrical patella was used. 3 drill holes are made for the pegs. The tibia was exposed. A custom tibial cutting block was positioned and drill holes were made for the cutting guide. Cutting guide was placed and the proximal cut was made with the oscillating saw. All osteophytes were resected. The lamina veterinary surgery technician was used to assess ligamentous balance and the ligaments were balanced in extension and flexion. This required a medial posterior medial release and pie crusting MCL. The tibia was reexposed and measured for a size D tibial component. This was externally rotated in line with the tibial tubercle and the fixation pins were drilled. The proximal tibia was fashioned with the drill and punch. The size 8 CR femoral trial was inserted. The trial MC inserts were used. The 10 mm insert had balanced ligaments in flexion but in extension there was still flexion contracture by about 5 degrees. Had to remove the femoral trial take 2 mm more off the femur we do the chamfer cuts and placed a trial back in place. The 10 mm insert gave balanced ligaments through full range of motion. The patella tracked with some lateral tilt so I did a lateral release leaving the synovium intact and the patella tracked centrally through full range of motion.. the trials were removed. The orthomix anesthetic cocktail was injected per protocol. The knee was then copiously irrigated with pulsatile lavage saline solution. The final components were cemented with Refobacin bone cement. The final components were a narrow right CR persona femoral component, D right tibial component, 10 mm MC right tibial polyethylene and a 32 mm symmetrical patella. After the cement cured with the knee in full extension the Betadine soak was used per protocol. The knee joint was copiously irrigated with pulsatile lavage saline solution . 2 drains were brought out laterally and connected to a Hemovac. The quadriceps tendon and medial retinaculum were closed with interrupted [id number] #1 Vicryl sutures. The knee was taken through a full range of motion and repair was secure. Range of motion 0 through 135 degrees. The subcutaneous tissues were closed with 2-0 Vicryl sutures and skin was closed with heather. Ro and Acticoat superficial wound VAC was applied and the patient tolerated the procedure well. Bo NI my physician golf player assistant who participated as first responder and was integral part in all aspects of the procedure, he assisted in soft tissue retraction, instrument management ,leg positioning, the closure the application of the superficial wound VAC ro and Acticoat and will participate in the postoperative care of the patient. I attest to the content of the Intraoperative Record and any orders documented therein. Any exceptions are noted below.
--- NOTE | 2022-06-16 13:47 | XRay Report ---
RIGHT KNEE 2 VIEWS History: Right total knee arthroplasty. Degenerative arthritis. Postop. FINDINGS: The patient is status post a right total knee arthroplasty. The hardware is intact. No frac ture or dislocation. Skin heather and surgical drains are in place. IMPRESSION: Right total knee arthroplasty. No evidence for hardware complication. ACT 112: Negative or not required by law. Electronically signed by: Jose Madrid M.D. 06/16/2022 1:46 PM
--- NOTE | 2022-06-16 14:20 | Anesthesiology Progress Note ---
Date of Service June 16, 2022 Anesthesia Post Procedure Vital Signs Vital Signs: Temp Pulse Pulse Resp BP BP Pulse Ox 06/16/22 14:10 103 H 19 129/76 97 06/16/22 13:40 99 H 15 130/79 95 06/16/22 13:00 96 H 19 120/80 100 06/16/22 13:10 36.5 C 95 H 13 124/74 98 06/16/22 12:50 96 H 16 120/73 98 06/16/22 12:40 36.0 C L 99 H 13 117/71 93 06/16/22 07:23 37.0 C 124 H 18 125/78 95 O2 Del Method O2 Flow Rate 06/16/22 14:10 Nasal Cannula 2 06/16/22 13:40 Nasal Cannula 2 06/16/22 13:00 Nasal Cannula 2 06/16/22 13:10 Nasal Cannula 2 06/16/22 12:50 Nasal Cannula 2 06/16/22 12:40 Nasal Cannula 2 06/16/22 07:23 Room Air Pain Intensity Right Knee: Pain Intensity: 4 Transfer of Care Handoff Completed per policy Notes Mental Status: alert / awake / arousable and participated in evaluation Nausea / Vomiting: adequately controlled Pain: adequately controlled Airway Patency, RR, SpO2: stable & adequate BP & HR: stable & adequate Hydration State: stable & adequate Neuraxial Anesthesia: was administered and sensory block is resolving Anesthetic Complications: no major complications apparent and Pt Satisfied with anesthetic care
[2022-06-16] MEDS ORDERED: PHARMACY GLYCEMIC MGMT CONSULT PRN (14:33)
[2022-06-16] MEDS ORDERED: bisacodyL 10 MG SUPP PR PRN (14:33)
[2022-06-16] MEDS ORDERED: HYDROmorphone INJ 0.5 MG/0.5 ML SYR IV PRN (14:33)
[2022-06-16] MEDS ORDERED: METOCLOPRAMIDE HCL INJ 5 MG/ML 2 ML VIAL IV PRN (14:33)
[2022-06-16] MEDS ORDERED: NALOXONE HCL 0.4 MG/1 ML VIAL/CARP IV PRN (14:33)
[2022-06-16] MEDS ORDERED: MAGNESIUM HYDROXIDE SUSP 30 ML UDC PO PRN (14:33)
[2022-06-16] MEDS ORDERED: oxyCODONE HCL IR 5 MG TAB (IMMEDIATE RELEASE) PO PRN (14:33)
[2022-06-16] MEDS ORDERED: diphenhydrAMINE Capsule 25 MG CAP PO PRN (15:24)
[2022-06-16] MEDS ORDERED: GLUCOSE 40% GEL 15 GM TUBE PO PRN (15:45)
[2022-06-16] MEDS ORDERED: GLUCAGON FOR INJ 1 MG VIAL IM PRN (15:45)
[2022-06-16] MEDS ORDERED: DEXTROSE 50% 50 ML SYRINGE IV PRN (15:45)
[2022-06-16] MEDS ORDERED: CARBOHYDRATES FOR HYPOGLYCEMIA PO PRN (15:45)
[2022-06-16] MEDS ORDERED: GLUCOSE 10 TAB/TUBE PO PRN (15:45)
--- NOTE | 2022-06-16 15:47 | Pharmacy Report ---
Pharmacy Glycemic Short Note 2 - Date of Service June 16, 2022 - Glycemic Short BSG Results (Last 24 hours): 06/16/22 07:19 POC Glucose 94 OUTPATIENT ANTIDIABETIC REGIMEN: * Rybelsus 14mg PO QAM * Metformin 1000mg PO BID ASSESSMENT: * Patient BETH is a 66 year old female admitted following knee surgery. Patient states that she does not have a diabetes mellitus diagnosis, and has a recent A1c of 5.8% on 05/26/22. The patient maintains her glycemic control outpatient with oral medications alone. Fasting BG this morning was 94 mg/dL. The patient was given 8mg of dexamethasone orally pre-op. Diet ordered; patient had a small chocolate pudding instead of lunch but will resume a normal meal schedule at dinnertime tonight. PLAN FOR INPATIENT GLYCEMIC CONTROL: * Hold outpatient oral diabetes medication * Bolus insulin * NovoLog per scale ACHS or Q6hrs while NPO * Goal Range: Low 110 mg/dL - High 140 mg/dL * Correction Factor: 25 mg/dL/unit * Nutritional / Prandial insulin per carb ratio of 1 unit per 8 grams CHO consumed * Basal insulin * Will forgo use at this time given good outpatient A1c control without use of insulin.
[2022-06-16] MEDS: ACETAMINOPHEN 500 MG TAB PO SCH ×2 (16:09→20:37)
[2022-06-16] MEDS: SODIUM CHLORIDE 0.9% 1000ML 1,000 ML IV SCH (16:09)
[2022-06-16] MEDS: [UNRECOGNIZED DRUG - REMARK] SCH ×2 (16:17→23:46)
[2022-06-16] MEDS: CALCIUM CARBONATE 500 MG CHEWABLE TAB PO SCH ×2 (17:24→20:37)
[2022-06-16] MEDS: INSULIN ASPART PER UNIT SC SCH ×2 (18:05→21:21)
[2022-06-16] MEDS: ceFAZolin 2000MG 2,000 MG/15 ML SYR IV SCH (18:13)
[2022-06-16] MEDS: CeleBREX 200 MG CAP PO SCH (20:36)
[2022-06-16] MEDS: DOCUSATE SODIUM 100 MG CAP PO SCH (20:36)
[2022-06-16] MEDS: ASPIRIN 81 MG ECTAB PO SCH (20:36)
[2022-06-16] MEDS ORDERED: CHOLECALCIFEROL 1,000 UNITS 25 MCG TAB PO SCH (21:00)
[2022-06-16] MEDS ORDERED: SENNA 8.6 MG TAB PO SCH (21:00)
[2022-06-17] MEDS: ceFAZolin 2000MG 2,000 MG/15 ML SYR IV SCH (01:47)
[2022-06-17] MEDS: SODIUM CHLORIDE 0.9% 1000ML 1,000 ML IV SCH (02:03)
[2022-06-17] MEDS: ACETAMINOPHEN 500 MG TAB PO SCH (05:54)
[2022-06-17] MEDS ORDERED: LEVOTHYROXINE SODIUM 150 MCG TABLET PO SCH (06:30)
[2022-06-17 06:45] LABS: Hematocrit (blood only) 35.7 % (34.1-44.9); Hemoglobin 12.1 g/dl (12.0-16.0); Mean Corpuscular Hemoglobin 31.5 pg (25.0-34.0); Mean Corpuscular Hgb Conc 33.9 g/dL (32.0-36.0); Mean Platelet Volume 10.2 fL (9.4-12.3); Platelet Count 290 K/uL (130-400); RDW Coefficient of Variation 14.1 % (11.5-14.5); RDW Standard Deviation 47.8 fL (36.4-46.3); Red Blood Count 3.84 M/uL (3.93-5.22)
[2022-06-17 07:02] LABS: BUN Creatinine Ratio 24.2 (10-20); Creatinine Clr Calc Pharmacy 92.2 ml/min; Est GFR (African American) 105.2 ml/min; Est GFR (Non-African American) 90.8 ml/min; Potassium 3.5 mmol/L (3.5-5.1)
[2022-06-17] MEDS: [UNRECOGNIZED DRUG - REMARK] SCH (07:20)
--- NOTE | 2022-06-17 07:48 | Internal Medicine Consult Note ---
Date of Consultation June 17, 2022 Assessment & Plan (1) Primary osteoarthritis of right knee: S/P Right Total Knee Arthroplasty: POD # 1 Pain is controlled Monitor for post OP anemia Continue Bowel regimen to prevent constipation Activity & DVT Px as per Primary team Continue Incentive Spirometry On aspirin 81mg BID for DVT Px Advised to follow up with PCP and Orthopedics upon discharge Leukocytosis Likely reactive secondary to above No obvious source of infection Monitor CBC Prediabetes Well controlled hold oral diabetic meds Last A1c:5.8 on 05/26/22 Insulin per protocol while hospitalized Sinus tachycardia Chronic Follows with Dr. Fiore Patient Continue diltiazem S/P thyroidectomy/parathyroidectomy S/P parathyroid autotransplant Chronic hypocalcemia Calcium 8.0 Continue calcium supplements Check ionized calcium Continue levothyroxine Hypertension On lisinopril, diltiazem BP stable Dyslipidemia On Lipitor Obesity BMI 36 On semaglutide Pernicious anemia Hemoglobin at baseline Monitor DVT Px: on Aspirin 81mg BID per Ortho Code Status Full Code History of Present Illness Reason for Consultation: Post Op medical management Requesting Physician: Shabbir Bob MD Attending Physician: Shabbir Bob MD History of Present Illness Patient is a 66-year-old female with history of hypertension, pernicious anemia, obstructive sleep apnea, hypothyroidism, prediabetes, sinus tachycardia, hypoparathyroidism, dyslipidemia and other medical problems was consulted for postop medical management after having right total knee arthroplasty by Dr. Bob. Patient is doing well postoperatively. Pain at Right knee surgical site is controlled. Sinus tachycardia noted but asymptomatic. Was nauseous earlier but resolved with medications currently. Denies any history of chest pain, dyspnea, palpitations, dizziness, cough, wheezing, fever, chills, headache, change in vision, abdominal pain, diarrhea, dysuria, hematuria, recent change in medications. Allergies Allergy/AdvReac Type Severity Reaction Status Date / Time ragweed pollen Allergy Mild WATERY Verified 06/16/22 07:17 EYES, SNEEZING alcaftadine [From Lastac[facility]] AdvReac Mild RED/BURNING Verified 06/16/22 07:17 EYES clavulanic acid AdvReac Mild DYSURIA Verified 06/16/22 07:17 Home Medications Medication Instructions Recorded Confirmed Type betamethasone dipropionate 0.05 % 1 applic topical DAILY PRN SKIN 01/30/19 06/16/22 History lotion ISSUES calcium carbonate 500 mg calcium 1,000 mg PO TID 01/30/19 06/16/22 History (1,250 mg) tablet cholecalciferol (vitamin D3) 25 1,000 unit PO QPM 01/30/19 06/16/22 History mcg (1,000 unit) tablet (Vitamin D3) cyanocobalamin (vitamin B-12) 500 500 mcg PO 3XWK 01/30/19 06/16/22 History mcg tablet (Vitamin B-12) diphenhydramine HCl 25 mg tablet 25 mg PO Q8H PRN Itching 01/30/19 06/16/22 History levothyroxine 150 mcg tablet 150 mcg PO QAM 01/30/19 06/16/22 History loratadine 10 mg tablet 10 mg PO QAM 01/30/19 06/16/22 History multivitamin 2 tab PO QDD 01/30/19 06/16/22 History meloxicam 15 mg tablet 15 mg PO DAILY 04/30/19 06/16/22 History atorvastatin 20 mg tablet (Lipitor) 20 mg PO QAM 05/20/22 06/16/22 History diltiazem HCl 360 mg capsule,24 360 mg PO QAM 05/20/22 06/16/22 History hr,extended release lisinopril 20 mg tablet 20 mg PO QAM 05/20/22 06/16/22 History metformin 500 mg tablet 1,000 mg PO BID 05/20/22 06/16/22 History semaglutide 14 mg tablet (Rybelsus) 14 mg PO QAM 05/20/22 06/16/22 History Patient History Medical History Dyslipidemia GERD (gastroesophageal reflux disease) controlled, stable per pt H/O Betty thyroiditis History of kidney stones NO SURGERY Hx of sleep apnea Hypertension controlled, stable per pt Hypothyroidism Needle phobia "worst nightmare" Prediabetes on oral medications, pt denies DM dx Tachycardia inappropriate sinus tachycardia, follows with S cardio, upcoming echo 05/27/22 Surgical History History of cataract surgery RT/LEFT History of colonoscopy History of open reduction and internal fixation (ORIF) procedure LEFT TIBIAL PLATEAU History of tonsillectomy and adenoidectomy History of total hip arthroplasty bilat. Right 06/15/17: SAB L3-L4 1 attempt. History of total shoulder replacement LEFT 03/07/19: Grade 1 view, Glidescope 3, ETT 7.5 + PNB. Hx of LASIK Hx of ovarian cystectomy Hx of shoulder surgery LEFT ARTHROSCOPY Hx of total thyroidectomy Nausea and vomiting after administration of anesthetic agent pt believes has received scop patch in past, denies adverse effects S/P UPPP (uvulopalatopharyngoplasty) 12/20/12 [place] teeth removed Family History Grandmother (Maternal) Family history of diabetes mellitus Uncle Family history of diabetes mellitus Other No family history of adverse response to anesthesia Social History Smoking Status: Never smoker Second Hand Exposure: Yes ( A CHILD); Do You Dip or Chew Tobacco: No; Hx Alcohol Use: Yes Hx Substance Use: No Preferred Language: Cambodian Communication Ability: Effective Radarman Required: No Beliefs That Will Affect Care: None Current Living Situation: Family Current Living Situation Comment: AND DAUGHTER Feels Safe at Home: Yes Safety Concerns: Feels Safe At This Time Assistive Devices: Glasses Assistive Devices Comment: READING GLASSES Review of Systems Review of Systems: All systems reviewed & are unremarkable except as noted in Subjective Physical Exam Physical Exam: Physical Exam: Vitals signs as noted above General Appearance:Obese, no apparent distress Head: normocephalic, Atraumatic Eyes: normal inspection, EOMI Neck: supple, Trachea midline Respiratory/Chest: Normal breath sounds, CTA, No accessory muscle use Cardiovascular: S1, S2, No murmur, +Tachycardia Abdomen/GI:Soft, Non tender, Bowel sounds present Extremities/Musculoskeletal:normal inspection, R knee in surgical dressing, +drain Neurologic/Psych:AAOX3, grossly no focal neurological deficits Skin: normal color, warm Results & Data ([facility]) Vital Signs (Past 12 Hours) Vital Signs Temp Pulse Resp BP Pulse Ox O2 Del Method 06/17/22 07:14 37.1 C 106 H 16 131/79 94 Room Air 06/17/22 02:50 36.6 C 90 16 113/75 93 Room Air 06/16/22 19:57 36.7 C 91 H 17 131/62 96 Room Air Laboratory Results Short CBC 06/17/22 Range/Units 06:24 WBC 17.20 H (4.8-10.8) K/ul Hgb 12.1 (12.0-16.0) g/dl Hct 35.7 (34.1-44.9) % Plt Count 290 (130-400) K/uL BMP 06/17/22 06:24 Sodium 138 Potassium 3.5 Chloride 105 Carbon Dioxide 26 BUN 16 Creatinine 0.66 Glucose 127 H Calcium 8.0 L ECG Additional Comments: EKG: Sinus tachycardia with occasional PVCs, right bundle branch block, QTC 522, no significant change otherwise when compared to prior EKG.
--- NOTE | 2022-06-17 08:47 | Orthopedic Progress Note ---
Date of Service June 17, 2022 Assessment & Plan (1) Primary osteoarthritis of right knee: Plan: POD 1 s/p Rigth TKA PT/OT protocols. WBAT. DVT prophylaxis - ASA po bid, SCD's, GENIE's Pain management as written. Leukocytosis - Pt essentially asymptomatic. Likely due to preop steroids and or surgical stress. DC planning - Pt planning for Outpt PT upon DC. Pt progressing well. Has already done OT this AM. Awaiting PT. Discussed case with Dr. Kan. Pt cleared medically to be dc'd. Admission and Anticipated Discharge Date Admission Date: June 16, 2022 Subjective POD 1 Pt sitting at side of bed. Dr. Kan present interviewing patient and finishing up in exam. Pt with noted increased WBC this AM. Likely due to surgical nature. Pt without complaints for me this AM. Pain controlled. Hoping to go home today. Physical Exam Physical Exam: Dressings C/D/I. Calves soft, NT. NV intact. Toes mobile. Good DF/PF of the right foot. HV drainage 125ml from previous shift. Results & Data ([facility]) Vital Signs (Past 12 Hours) Vital Signs Temp Pulse Resp BP Pulse Ox O2 Del Method 06/17/22 07:14 37.1 C 106 H 16 131/79 94 Room Air 06/17/22 02:50 36.6 C 90 16 113/75 93 Room Air Laboratory Results Laboratory Results WBC 17.20 K/ul (4.8-10.8) H 06/17/22 06:24 RBC 3.84 M/uL (3.93-5.22) L 06/17/22 06:24 Hgb 12.1 g/dl (12.0-16.0) 06/17/22 06:24 Hct 35.7 % (34.1-44.9) 06/17/22 06:24 MCV 93.0 fL (80.0-100.0) 06/17/22 06:24 MCH 31.5 pg (25.0-34.0) 06/17/22 06:24 MCHC 33.9 g/dL (32.0-36.0) 06/17/22 06:24 RDW Std Deviation 47.8 fL (36.4-46.3) H 06/17/22 06:24 RDW Coeff of Joyce 14.1 % (11.5-14.5) 06/17/22 06:24 Plt Count 290 K/uL (130-400) 06/17/22 06:24 MPV 10.2 fL (9.4-12.3) 06/17/22 06:24 Sodium 138 mmol/L (136-145) 06/17/22 06:24 Potassium 3.5 mmol/L (3.5-5.1) 06/17/22 06:24 Chloride 105 mmol/L (98-107) 06/17/22 06:24 Carbon Dioxide 26 mmol/L (21-32) 06/17/22 06:24 Anion Gap 7 (3-11) 06/17/22 06:24 BUN 16 mg/dl (6-23) 06/17/22 06:24 Creatinine 0.66 mg/dl (0.6-1.2) 06/17/22 06:24 Est Cr Clr Drug Dosing 92.2 ml/min 06/17/22 06:24 Est GFR ( Amer) 105.2 ml/min 06/17/22 06:24 Est GFR (Non-Af Amer) 90.8 ml/min 06/17/22 06:24 BUN/Creatinine Ratio 24.2 (10-20) H 06/17/22 06:24 Glucose 127 mg/dl (70-99(Fasting)) H 06/17/22 06:24 POC Glucose 117 mg/dl (70-99) H 06/17/22 08:05 Calcium 8.0 mg/dl (8.5-10.1) L 06/17/22 06:24 SARS-CoV-2, RNA, NAAT NEGATIVE (NEGATIVE) 06/16/22 Unknown Impressions Knee X-Ray 06/16/22 12:44 RIGHT KNEE 2 VIEWS History: Right total knee arthroplasty. Degenerative arthritis. Postop. FINDINGS: The patient is status post a right total knee arthroplasty. The hardware is intact. No fracture or dislocation. Skin heather and surgical drains are in place. IMPRESSION: Right total knee arthroplasty. No evidence for hardware complication. ACT 112: Negative or not required by law. Electronically signed by: Jose Madrid M.D. 06/16/2022 1:46 PM
[2022-06-17] MEDS: CeleBREX 200 MG CAP PO SCH (08:58)
[2022-06-17] MEDS: CALCIUM CARBONATE 500 MG CHEWABLE TAB PO SCH (08:58)
[2022-06-17] MEDS: ASPIRIN 81 MG ECTAB PO SCH (08:58)
[2022-06-17] MEDS: DOCUSATE SODIUM 100 MG CAP PO SCH (08:59)
[2022-06-17] MEDS ORDERED: oxyCODONE IR HOME PACK PO ONE (08:59)
[2022-06-17] MEDS ORDERED: ATORVASTATIN 20 MG TAB PO SCH (09:00)
[2022-06-17] MEDS ORDERED: dilTIAZem HCL 180 MG CAPCR PO SCH (09:00)
[2022-06-17] MEDS ORDERED: lisinopril 20 MG TAB PO SCH (09:00)
[2022-06-17] MEDS ORDERED: LORATADINE 10 MG TAB PO SCH (09:00)
[2022-06-17] MEDS ORDERED: MULTIVITAMIN TAB PO SCH (09:00)
[2022-06-17] MEDS: INSULIN ASPART PER UNIT SC SCH (09:01)
[2022-06-17] MEDS ORDERED: PROMETHAZINE HCL 6.25 MG in SODIUM CHLORIDE 0.9% 50 ML IV PRN (09:11)
--- NOTE | 2022-06-17 10:42 | Electrocardiogram Report ---
Test Reason : Blood Pressure : / mmHG Vent. 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
[2022-06-18] MEDS ORDERED: CYANOCOBALAMIN (B-12) 500 MCG TABLET PO SCH (09:00)
--- NOTE | 2022-06-21 16:52 | Discharge Summary ---
Date of Service June 21, 2022 Admission HPI Per Admitting Provider 66-year-old female with past medical history significant for hypertension, high cholesterol, hypothyroidism who presents with ongoing right knee pain. She has failed conservative measures. Pain is interfering with her daily activities. She would like to proceed with surgical invention. Patient denies headaches, sweats, fevers, chills, double vision, blurred vision, cough, sore throat, dysphagia, chest pain, sob, wheezing, n/v/d/c, numbness, tingling, fatigue, urinary symptoms, mood disorders. ROS positive for right knee pain and stiffness. Admission Exam Per Admitting Provider Constitutional: well developed and well nourished; no acute distress Eyes: PERRL, conjunctivae normal, anicteric sclerae ENMT: external ear and nose normal, oropharynx normal Neck: trachea midline, no thyromegaly Respiratory: normal respiratory effort, lungs clear to auscultation Cardiovascular: RRR, no murmur, no edema Musculoskeletal: Right knee: Varus alignment. Mild effusion. Tenderness medial joint line, medial patellar facet, lateral patellar facet. Moderate crepitation with range of motion. Positive Dion's. Stable valgus and varus stress test. Range of motion is 10 to 125 degrees. Skin: no rashes, warm and dry Neurologic: patellar DTR's 2+ bilat, sensation intact Psychiatric: A+Ox3, euthymic affect Principal Diagnosis Right knee osteoarthritis Discharge Exam Dressings C/D/I. Calves soft, NT. NV intact. Toes mobile. Good DF/PF of the right foot. HV drainage 125ml from previous shift. Constitutional well developed and well nourished; no acute distress Discharge Data Allergies Allergy/AdvReac Type Severity Reaction Status Date / Time ragweed pollen Allergy Mild WATERY Verified 06/16/22 07:17 EYES, SNEEZING alcaftadine [From [facility]] AdvReac Mild RED/BURNING Verified 06/16/22 07:17 EYES clavulanic acid AdvReac Mild DYSURIA Verified 06/16/22 07:17 Consultations 06/11/22 16:03 Consult Hospitalist Routine Procedures Performed Operation Date: 06/16/22 09:20 Actual Procedures p Right Total Knee Arthroplasty Cemented(Right) - Shabbir Bob MD Ordered Studies 06/15/22 05:00 US - OR guided needle placemen Routine Hospital Course (1) Primary osteoarthritis of right knee: POD 1 s/p Rigth TKA PT/OT protocols. WBAT. DVT prophylaxis - ASA po bid, SCD's, GENIE's Pain management as written. Leukocytosis - Pt essentially asymptomatic. Likely due to preop steroids and or surgical stress. DC planning - Pt planning for Outpt PT upon DC. Pt progressing well. Has already done OT this AM. Awaiting PT. Discussed case with Dr. Kan. Pt cleared medically to be dc'd. Lab Results 06/16/22 06/16/22 06/16/22 Range/Units 07:19 15:30 17:20 WBC (4.8-10.8) K/ul RBC (3.93-5.22) M/uL Hgb (12.0-16.0) g/dl Hct (34.1-44.9) % MCV (80.0-100.0) fL MCH (25.0-34.0) pg MCHC (32.0-36.0) g/dL RDW Std Deviation (36.4-46.3) fL RDW Coeff of Joyce (11.5-14.5) % Plt Count (130-400) K/uL MPV (9.4-12.3) fL Sodium (136-145) mmol/L Potassium (3.5-5.1) mmol/L Chloride (98-107) mmol/L Carbon Dioxide (21-32) mmol/L Anion Gap (3-11) BUN (6-23) mg/dl Creatinine (0.6-1.2) mg/dl Est Cr Clr Drug Dosing ml/min Est GFR ( Amer) ml/min Est GFR (Non-Af Amer) ml/min BUN/Creatinine Ratio (10-20) Glucose (70-99(Fasting)) mg/dl POC Glucose 94 159 H 150 H (70-99) mg/dl Calcium (8.5-10.1) mg/dl SARS-CoV-2, RNA, NAAT (NEGATIVE) 06/16/22 06/16/22 06/17/22 Range/Units 20:44 Unknown 06:24 WBC 17.20 H (4.8-10.8) K/ul RBC 3.84 L (3.93-5.22) M/uL Hgb 12.1 (12.0-16.0) g/dl Hct 35.7 (34.1-44.9) % MCV 93.0 (80.0-100.0) fL MCH 31.5 (25.0-34.0) pg MCHC 33.9 (32.0-36.0) g/dL RDW Std Deviation 47.8 H (36.4-46.3) fL RDW Coeff of Joyce 14.1 (11.5-14.5) % Plt Count 290 (130-400) K/uL MPV 10.2 (9.4-12.3) fL Sodium (136-145) mmol/L Potassium (3.5-5.1) mmol/L Chloride (98-107) mmol/L Carbon Dioxide (21-32) mmol/L Anion Gap (3-11) BUN (6-23) mg/dl Creatinine (0.6-1.2) mg/dl Est Cr Clr Drug Dosing ml/min Est GFR ( Amer) ml/min Est GFR (Non-Af Amer) ml/min BUN/Creatinine Ratio (10-20) Glucose (70-99(Fasting)) mg/dl POC Glucose 149 H (70-99) mg/dl Calcium (8.5-10.1) mg/dl SARS-CoV-2, RNA, NAAT NEGATIVE (NEGATIVE) 06/17/22 06/17/22 Range/Units 06:24 08:05 WBC (4.8-10.8) K/ul RBC (3.93-5.22) M/uL Hgb (12.0-16.0) g/dl Hct (34.1-44.9) % MCV (80.0-100.0) fL MCH (25.0-34.0) pg MCHC (32.0-36.0) g/dL RDW Std Deviation (36.4-46.3) fL RDW Coeff of Joyce (11.5-14.5) % Plt Count (130-400) K/uL MPV (9.4-12.3) fL Sodium 138 (136-145) mmol/L Potassium 3.5 (3.5-5.1) mmol/L Chloride 105 (98-107) mmol/L Carbon Dioxide 26 (21-32) mmol/L Anion Gap 7 (3-11) BUN 16 (6-23) mg/dl Creatinine 0.66 (0.6-1.2) mg/dl Est Cr Clr Drug Dosing 92.2 ml/min Est GFR ( Amer) 105.2 ml/min Est GFR (Non-Af Amer) 90.8 ml/min BUN/Creatinine Ratio 24.2 H (10-20) Glucose 127 H (70-99(Fasting)) mg/dl POC Glucose 117 H (70-99) mg/dl Calcium 8.0 L (8.5-10.1) mg/dl SARS-CoV-2, RNA, NAAT (NEGATIVE) Total Time Total Time Spent Total Time Spent (In Minutes): 20 Discharge Plan Discharge Items Patient Disposition: Home - Self-Care Reason For Visit: Primary Osteoarthritis of Right Knee Discharge Diagnosis: Right Knee Osteoarthritis Activity: Per Instructions section Weightbearing: Right weightbearing Weightbearing Comment: as tolerated with walker Non-emergency contact: Surgeon Call non-emergency contact if: you have any medication questions, your pain is not controlled, your temperature is above 101.5, your wound has increased redness and your wound has increased drainage Follow-up/Referrals: Latasha Solis MD [Primary Care Provider] - Shabbir Bob MD [Surgeon] - (Follow up with Dr Bob in 2 weeks from the day of surgery for your first post operative visit. Please call for an appointment if one has not been made for you. ) Diet: Regular Addtl Attending Provider Instructions: ACTIVITY RECOMMENDATIONS: SELF CARE INSTRUCTIONS AFTER TOTAL KNEE REPLACEMENT A. You may need to continue a physical therapy program after discharge from the hospital. There are several options available to you. Your doctor will assist you in selecting the best one for you. 1. An out-patient facility 2 to 3 times a week for therapy or home therapy. 2. Continue working on all exercises taught to you in the hospital. Your goals should be to increase bending of your knee to 90 degrees and beyond and to fully straighten your knee. B. You may progress at your own pace from walking with a walker or crutches to a cane; then to no assistive devices. C. Make walking a part of your daily routine. Be up as much as comfortable with rest periods throughout the day. Rest with leg elevation is very important. Use the ice wrap frequently for the first 3-4 weeks. D. There are no restrictions on activities. You may ride in a car, shop, part icipate in physical chemistry teacher and all social activities. E. Wear the long elastic stockings (GENIE hose) 20 hours a day for 2 weeks after surgery. They can be removed several times a day for laundering and for a bath. F. You may shower, no tub baths until cleared by your doctor. SPECIAL CARE INSTRUCTIONS: VERY IMPORTANT TO READ AND REVIEW A. There are a few signs you need to watch for after you are home. Call [facility] if you notice any of the followin. Increased severe knee pain. Some pain is expected especially when you exercise. 2. Increased swelling in your leg or knee; pain or swelling of the calf muscle in either lower leg. 3. Any fluid drainage from the incision. 4. Shortness of breath or chest pain. B. Please call [facility] at if you have any concerns or questions about your operation or recovery. The doctor or his nurse will return your call promptly. C. You must take antibiotics before dental work, bladder, bowel or other surgery. Your doctor will provide you with a permanent care to carry describing t his precaution. IMPORTANT: * REMEMBER TO TAKE ASPIRIN, 81 MG, TWICE DAILY FOR 4 WEEKS UNLESS OTHERWISE DIRECTED. THIS IS YOUR BLOOD THINNER. * HIGH RISK PATIENTS MAY BE PRESCRIBED A STRONGER BLOOD THINNER. THIS WILL BE PROVIDED AT DISCHARGE. * CALL IF INCREASED PAIN, REDNESS, DRAINAGE OR FEVER GREATER THAT 101. * WEAR GENIE HOSE 20 HOURS PER DAY FOR 2 WEEKS. * Ro Dressing - This is a large suction dressing covering your incision. This will help pull any excess drainage from the wound and allow your incision to heal properly. You may shower with this if you can keep the unit outside of the shower. If any bleeding or leakage is noted please call your doctor's office. This will remain on your incision for 7 days and then should be re moved. This can be done yourself or by the home nursing staff if applicable. The entire unit is disposable once removed. Once removed, keep incision clean and dry. If redness or drainage is noted, please call your surgeon. . FOLLOW UP VISIT: If appointment is not already scheduled: Please call [facility] to make a follow-up appointment for 2 weeks after your surgery at . Stand-Alone Forms: My [facility], Smoking Cessation Medications and DC Order Prescriptions: New acetaminophen [Tylenol Extra Strength] 500 mg Tablet 1,000 mg PO Q8 14 Days Qty: 84 0RF aspirin 81 mg Tablet,Delayed Release (Dr/Ec) 81 mg PO BID 30 Days Qty: 60 0RF celecoxib [Celebrex] 200 mg Capsule 200 mg PO BID 14 Days Qty: 28 0RF oxycodone 5 mg Tablet 5 - 10 mg PO Q4H PRN (Reason: pain) Qty: 36 0RF polyethylene glycol 3350 [Miralax] 17 gram powder in packet 17 g PO DAILY PRN (Reason: constipation) Qty: 5 0RF Continued multivitamin Tablet,Chewable 2 tab PO QDD cyanocobalamin (vitamin B-12) [Vitamin B-12] 500 mcg Tablet 500 mcg PO 3XWK calcium carbonate 500 mg calcium (1,250 mg) Tablet 1,000 mg PO TID diphenhydramine HCl 25 mg Tablet 25 mg PO Q8H PRN (Reason: Itching) levothyroxine 150 mcg Tablet 150 mcg PO QAM betamethasone dipropionate 0.05 % Lotion 1 applic TOPICAL DAILY PRN (Reason: SKIN ISSUES) loratadine 10 mg Tablet 10 mg PO QAM cholecalciferol (vitamin D3) [Vitamin D3] 1,000 unit Tablet 1,000 unit PO QPM metformin 500 mg Tablet 1,000 mg PO BID lisinopril 20 mg Tablet 20 mg PO QAM diltiazem HCl 360 mg Capsule,Extended Release 24 Hr 360 mg PO QAM Rybelsus 14 mg Tablet 14 mg PO QAM atorvastatin [Lipitor] 20 mg Tablet 20 mg PO QAM Discontinued meloxicam 15 mg Tablet 15 mg PO DAILY Discharge Orders: Discharge Order (Routine); Ordered 06/17/22 Ordered By: Angel Fulton Admission Data Admit Date/Time: 06/16/22 12:44 Attending Provider: Shabbir Bob Admit Provider: Shabbir Bob Primary Care Provider: Latasha Solis Other Providers: Yogesh Campos Other Interventions: Discharge Summary Assessment (RN) Last Done: 06/17/22 10:18
== END 2022-06-17 12:49 | disposition home or self-care (01) ==
LOC: ASU 06:52 → 3E 06:52